=== PATIENT | female | born 1975 | race American Indian/Alaskan Native ===

== ENCOUNTER 2017-09-01 19:50 | Emergency (ER) | payer MEDICAID ==
[2017-09-01 20:35] VITALS: BP 195/80
[2017-09-01] MEDS ORDERED: TORADOL IM ONE (20:36)
[2017-09-01] MEDS ORDERED: ZOFRAN IM ONE (20:36)
[2017-09-01 21:00] LABS: HCG Qualitative,Urine Negative (Negative)
[2017-09-01 21:06] LABS: Bilirubin,Urine NEG (Negative); Blood,Urine LG (Negative); Color,Urine Amber (Yellow)
[2017-09-01 21:17] LABS: Basophils % (Auto) 0.3 % (0.0-1.8); Eosinophils # (Auto) 0.2 K/mm3 (0.0-0.4); Eosinophils % (Auto) 2.2 % (0.0-4.3); Hematocrit 38.6 % (30.3-42.9); Hemoglobin 12.1 gm/dl (10.1-14.3); Lymphocytes # (Auto) 1.6 K/mm3 (1.2-5.4); Lymphocytes % (Auto) 19.7 % (13.4-35.0); Mean Corpuscular HGB Conc 31 % (30-34); Mean Corpuscular Volume 75 fl (79-97); Monocytes # (Auto) 0.6 K/mm3 (0.0-0.8); Monocytes % (Auto) 7.8 % (0.0-7.3); Platelet Count 302 K/mm3 (140-440); Red Blood Count 5.15 M/mm3 (3.65-5.03); Red Cell Distribution Width 17.2 % (13.2-15.2)
[2017-09-01 21:18] LABS: Mean Corpuscular Hemoglobin 24 pg (28-32)
[2017-09-01 21:36] LABS: BUN/Creatinine Ratio 11; Blood Urea Nitrogen 10 mg/dL (7-17); Calcium 9.1 mg/dL (8.4-10.2); Hemolysis Index 11
== END 2017-09-01 22:00 | disposition left against medical advice (07) ==
LOC: ED 19:50
DX: M54.9 Dorsalgia, unspecified (principal); Z53.21 Procedure and treatment not carried out due to patient leaving prior to being seen by health care provider
CPT/HCPCS: 36415; 80048; 81001; 81025; 85025; J1885; J2405

== ENCOUNTER 2017-10-16 22:44 | Emergency (ER) | payer MEDICAID ==
[2017-10-16] MEDS ORDERED: PEPCID IV ONE ×2 (23:12)
[2017-10-16 23:45] LABS: Basophils % (Auto) 0.3 % (0.0-1.8); Eosinophils # (Auto) 0.2 K/mm3 (0.0-0.4); Eosinophils % (Auto) 2.4 % (0.0-4.3); Hemoglobin 11.8 gm/dl (10.1-14.3); Lymphocytes # (Auto) 2.8 K/mm3 (1.2-5.4); Lymphocytes % (Auto) 38.7 % (13.4-35.0); Mean Corpuscular HGB Conc 31 % (30-34); Mean Corpuscular Volume 75 fl (79-97); Monocytes # (Auto) 0.6 K/mm3 (0.0-0.8); Monocytes % (Auto) 7.9 % (0.0-7.3); Platelet Count 301 K/mm3 (140-440); Red Blood Count 5.07 M/mm3 (3.65-5.03); Red Cell Distribution Width 17.3 % (13.2-15.2)
[2017-10-16 23:48] LABS: Mean Corpuscular Hemoglobin 23 pg (28-32)
[2017-10-16] MEDS ORDERED: APRESOLINE IV ONE (23:54)
[2017-10-16 23:56] LABS: BUN/Creatinine Ratio 13; Blood Urea Nitrogen 10 mg/dL (7-17); Calcium 8.8 mg/dL (8.4-10.2); Hemolysis Index 9
[2017-10-16] MEDS ORDERED: NACL 0.9% 500 ML 500 ML IV ONE (23:56)
[2017-10-16] MEDS ORDERED: ATIVAN IV ONE (23:57)
--- NOTE | 2017-10-16 23:57 | Emergency Department Report ---
HPI - General Chief Complaint: Allergic Reaction Time Seen by Provider: 10/16/17 23:52 - HPI HPI: The patient is a 42-year-old female with a history of allergies to peanuts and shellfish, who presents for evaluation of dyspnea and throat pain. The patient reports sudden onset of tightness of the throat 30 minutes prior to arrival, severe, constant, and associated with mild dyspnea and burning sensation of the upper chest. The patient denies lip or tongue swelling, neck stiffness, dysphagia, stridor, drooling, difficulty tolerating secretions, dysphonia, hoarseness of voice, abdominal pain. ED Past Medical Hx - Past Medical History Previous Medical History?: Yes Hx Hypertension: Yes Hx Congestive Heart Failure: No Hx Diabetes: No Hx Psychiatric Treatment: Yes (PTSD, Depression) Hx Asthma: No Additional medical history: fibriod. chronic brochitis. anemia - Surgical History Past Surgical History?: Yes Hx Cholecystectomy: Yes Additional Surgical History: Fibroids removed 2012 - Social History Smoking Status: Never Smoker Substance Use Type: None - Medications Home Medications: Home Medications Medication Instructions Recorded Confirmed Last Taken Type Hydrochlorothiazide [Hctz] 12.5 mg PO QDAY #30 capsule 10/21/15 Unknown Rx Prednisone [predniSONE 10 mg 10 mg PO .TAPER #1 tab.ds.pk 10/21/15 Unknown Rx (6-Day Pack, 21 Tabs)] amLODIPine [Norvasc] 10 mg PO DAILY #30 tab 10/21/15 Unknown Rx ED Review of Systems ROS: Stated complaint: ALLERGIC REACTION Other details as noted in HPI Constitutional: denies: fever ENT: reports: throat or neck pain Respiratory: denies: cough, shortness of breath Cardiovascular: denies: chest pain Endocrine: denies unexplained weight loss or gain Gastrointestinal: denies: abdominal pain, nausea Genitourinary: denies: dysuria Musculoskeletal: denies: leg swelling Skin: denies: rash Neurological: denies: headache Hematological/Lymphatic: denies: easy bleeding or easy bruising Psych: denies sadness or hopelessness Physical Exam - Physical Exam Vital Signs: Vital Signs 10/16/17 10/16/17 10/16/17 23:02 23:08 23:21 Temperature 100.1 F H Pulse Rate 110 H 108 H Respiratory 24 18 18 Rate Blood Pressure 189/112 Blood Pressure 189/112 172/99 [Right] O2 Sat by Pulse 100 98 98 Oximetry Physical Exam: General: well-nourished, well-developed, no acute distress Head: Normocephalic, atraumatic Eyes: normal sclera ENT: Mucous membranes are pale and dry, no lip or tongue swelling, no uvula swelling, no uvula or soft palate deviation, no pooling of secretions in the posterior oral pharynx, no stridor Neck: No neck stiffness, no cervical adenopathy, Respiratory: Breath sounds equal bilaterally, no wheezing, rales, or rhonchi Cardio: S1 and S2 present, no murmurs, rubs, gallops, capillary refill is delayed Abdomen: Normoactive bowel sounds, soft abdomen, no rigidity, no guarding or rebound tenderness Chest WALL/Back: No tenderness to palpation of the chest wall, no CVA tenderness with percussion Musc: No pitting edema Skin: No rash Neuro: no facial drooping, normal speech Psych: Normal affect ED Course Vital Signs 10/16/17 10/16/17 10/16/17 23:02 23:08 23:21 Temperature 100.1 F H Pulse Rate 110 H 108 H Respiratory 24 18 18 Rate Blood Pressure 189/112 Blood Pressure 189/112 172/99 [Right] O2 Sat by Pulse 100 98 98 Oximetry ED Medical Decision Making - Lab Data Result diagrams: 10/16/17 23:31 10/16/17 23:31 - Medical Decision Making The patient was seen and examined by myself. The patient is placed on a busser and continuous pulse ox. On initial evaluation, the patient was found to be in no distress. Evaluation orders were placed. The patient is given IM epi and IV Pepcid. The patient received IV Solu-Medrol and Benadryl via EMS prior to arrival. X-ray of the chest is unremarkable. EKG is unremarkable. Lab results are unrevealing. The patient was monitored in the emergency department for greater than 4 hours without any signs of impending airway compromise. The patient was reevaluated and reported that their symptoms were markedly improved. The patient is stable for discharge with outpatient follow-up. The patient is given follow-up and return instructions. The patient expressed understanding and agreed with the plan. The patient is discharged in stable condition. Critical care attestation.: If time is entered above; I have spent that time in minutes in the direct care of this critically ill patient, excluding procedure time. ED Disposition Clinical Impression: Dehydration Anaphylactic reaction Qualifiers: Encounter type: initial encounter Qualified Code(s): T78.2XXA - Anaphylactic shock, unspecified, initial encounter Disposition: DC-01 TO HOME OR SELFCARE Is pt being admited?: No Does the pt Need Aspirin: No Condition: Stable Referrals: PRIMARY CARE,MD [Primary Care Provider] - 3-5 Days Forms: Work/School Release Form(ED) Time of Disposition: 03:39
--- NOTE | 2017-10-17 01:09 | XRay Report ---
FINAL REPORT EXAM: XR CHEST 1V AP HISTORY: chest pain COMPARISON: None available. FINDINGS: Frontal view(s) of the chest obtained. Heart borderline enlarged. Shallow inspiration with crowding of the bronchovascular markings. No large consolidation or effusion. No pneumothorax. IMPRESSION: Heart borderline enlarged. Shallow inspiration with crowding of the bronchovascular markings. No large consolidation or effusion.
[2017-10-17] MEDS ORDERED: APRESOLINE IV ONE ×2 (01:37→03:33)
[2017-10-17] MEDS ORDERED: LASIX IV ONE (03:33)
[2017-10-17] MEDS ORDERED: ATIVAN IV ONE (03:33)
[2017-10-17] MEDS ORDERED: NITROSTAT SL ONE (03:33)
[2017-10-17] MEDS ORDERED: PERCOCET 5/325 ONE (07:36)
[2017-10-17] MEDS ORDERED: PERCOCET 5/325 PO ONE (07:40)
[2017-10-17 07:42] VITALS: BP 148/93
== END 2017-10-17 08:38 | disposition home or self-care (01) ==
LOC: ED 22:44
DX: T78.2XXA Anaphylactic shock, unspecified, initial encounter (principal); E86.0 Dehydration; I10 Essential (primary) hypertension; F32.9 Major depressive disorder, single episode, unspecified; Z90.49 Acquired absence of other specified parts of digestive tract; Z91.013 Allergy to seafood; Z91.010 Allergy to peanuts
CPT/HCPCS: 36415; 71045; 80048; 85025; 93005; 93010; 96361; 96374; 96375; 96376; 99285; J0360; J1940; J2060; J2930; J7040

== ENCOUNTER 2017-11-21 14:42 | Emergency (ER) | payer MEDICAID ==
[2017-11-21] MEDS ORDERED: NACL 0.9% 1000 ML 1,000 ML IV ONE (15:15)
--- NOTE | 2017-11-21 15:15 | Emergency Department Report ---
ED Allergic Reaction HPI - General Chief complaint: Allergic Reaction Stated complaint: ALLERGIC REACTION Time Seen by Provider: 11/21/17 15:13 Source: patient, EMS Mode of arrival: Stretcher Limitations: No Limitations - History of Present Illness MD Complaint: allergic reaction -: Sudden Exposure: food Symptoms: itching, difficulty breathing Severity: moderate Treatment Prior to Arrival: benadryl, epinephrine Previous Allergy History: prior ED visit(s), anaphylaxis - Related Data Previous Rx's Medication Instructions Recorded Last Taken Type Hydrochlorothiazide [Hctz] 12.5 mg PO QDAY #30 capsule 10/21/15 Unknown Rx Prednisone [predniSONE 10 mg 10 mg PO .TAPER #1 tab.ds.pk 10/21/15 Unknown Rx (6-Day Pack, 21 Tabs)] amLODIPine [Norvasc] 10 mg PO DAILY #30 tab 10/21/15 Unknown Rx Hydrochlorothiazide [HCTZ] 25 mg PO QDAY #30 tablet 10/17/17 Unknown Rx Prednisone [predniSONE 10 mg 10 mg PO .TAPER #1 tab.ds.pk 10/17/17 Unknown Rx (6-Day Pack, 21 Tabs)] amLODIPine [Norvasc] 10 mg PO DAILY #31 tab 10/17/17 Unknown Rx diphenhydrAMINE [Benadryl CAP] 50 mg PO Q8HR PRN #30 capsule 10/17/17 Unknown Rx EPINEPHrine [Epipen 2-Albert] 0.3 mg SUB-Q ONCE PRN #1 auto.injct 11/21/17 Unknown Rx diphenhydrAMINE [Benadryl CAP] 50 mg PO Q8HR PRN #20 capsule 11/21/17 Unknown Rx predniSONE [Deltasone] 60 mg PO QDAY #12 tab 11/21/17 Unknown Rx Allergies Allergy/AdvReac Type Severity Reaction Status Date / Time almond Allergy Anaphylaxis Verified 11/21/17 14:59 shellfish derived AdvReac Anaphylaxis Verified 11/21/17 14:59 ED Review of Systems ROS: Stated complaint: ALLERGIC REACTION Other details as noted in HPI Comment: All other systems reviewed and negative Constitutional: denies: chills, fever Eyes: denies: eye pain ENT: denies: ear pain Respiratory: denies: cough, orthopnea, shortness of breath Cardiovascular: denies: chest pain, palpitations, dyspnea on exertion, syncope Endocrine: no symptoms reported Gastrointestinal: denies: abdominal pain, nausea, vomiting, constipation Genitourinary: denies: urgency, dysuria, frequency Musculoskeletal: denies: back pain, joint swelling Skin: denies: rash, lesions, change in color Neurological: denies: headache, weakness Psychiatric: denies: anxiety, depression Hematological/Lymphatic: denies: easy bleeding, easy bruising ED Past Medical Hx - Past Medical History Previous Medical History?: Yes Hx Hypertension: Yes Hx Congestive Heart Failure: No Hx Diabetes: No Hx Psychiatric Treatment: Yes (PTSD, Depression, panic disorder) Hx Asthma: No Additional medical history: fibriod. chronic brochitis. anemia - Surgical History Hx Cholecystectomy: Yes Additional Surgical History: Fibroids removed 2012 - Social History Smoking Status: Never Smoker Substance Use Type: None - Medications Home Medications: Home Medications Medication Instructions Recorded Confirmed Last Taken Type Hydrochlorothiazide [Hctz] 12.5 mg PO QDAY #30 capsule 10/21/15 Unknown Rx Prednisone [predniSONE 10 mg 10 mg PO .TAPER #1 tab.ds.pk 10/21/15 Unknown Rx (6-Day Pack, 21 Tabs)] amLODIPine [Norvasc] 10 mg PO DAILY #30 tab 10/21/15 Unknown Rx Hydrochlorothiazide [HCTZ] 25 mg PO QDAY #30 tablet 10/17/17 Unknown Rx Prednisone [predniSONE 10 mg 10 mg PO .TAPER #1 tab.ds.pk 10/17/17 Unknown Rx (6-Day Pack, 21 Tabs)] amLODIPine [Norvasc] 10 mg PO DAILY #31 tab 10/17/17 Unknown Rx diphenhydrAMINE [Benadryl CAP] 50 mg PO Q8HR PRN #30 capsule 10/17/17 Unknown Rx EPINEPHrine [Epipen 2-Albert] 0.3 mg SUB-Q ONCE PRN #1 auto.injct 11/21/17 Unknown Rx diphenhydrAMINE [Benadryl CAP] 50 mg PO Q8HR PRN #20 capsule 11/21/17 Unknown Rx predniSONE [Deltasone] 60 mg PO QDAY #12 tab 11/21/17 Unknown Rx ED Physical Exam - General Limitations: No Limitations General appearance: alert, in no apparent distress, obese - Head Head exam: Present: atraumatic, normocephalic, normal inspection - Eye Eye exam: Present: normal appearance, PERRL, EOMI Pupils: Present: normal accommodation - ENT ENT exam: Present: normal exam, normal orophraynx, mucous membranes moist - Neck Neck exam: Present: normal inspection, full ROM. Absent: tenderness - Respiratory Respiratory exam: Present: normal lung sounds bilaterally. Absent: respiratory distress, wheezes, rales, rhonchi - Cardiovascular Cardiovascular Exam: Present: regular rate, normal rhythm, normal heart sounds - GI/Abdominal GI/Abdominal exam: Present: soft, normal bowel sounds. Absent: distended, tenderness, guarding, rebound - Extremities Exam Extremities exam: Present: normal inspection, full ROM, normal capillary refill. Absent: tenderness - Back Exam Back exam: Present: normal inspection, full ROM. Absent: tenderness - Neurological Exam Neurological exam: Present: alert, oriented X3, CN II-XII intact - Psychiatric Psychiatric exam: Present: normal affect, normal mood - Skin Skin exam: Present: warm, dry, intact, normal color, rash ED Course Vital Signs 11/21/17 11/21/17 11/21/17 14:42 16:00 17:00 Temperature 98.5 F Pulse Rate 105 H 109 H 95 H Respiratory 17 15 18 Rate Blood Pressure 167/68 Blood Pressure 199/100 150/90 [Left] O2 Sat by Pulse 98 98 96 Oximetry 11/21/17 11/21/17 17:40 18:16 Temperature 98.2 F Pulse Rate 91 H Respiratory 18 Rate Blood Pressure Blood Pressure 149/86 [Left] O2 Sat by Pulse 96 96 Oximetry - Reevaluation(s) Reevaluation #1: 11/21/17 19:00 Patient states she is much better and would like to be discharged home. ED Medical Decision Making - Lab Data Result diagrams: 11/21/17 15:42 11/21/17 15:42 - Radiology Data Radiology results: report reviewed - Medical Decision Making Allergic Reaction. Critical care attestation.: If time is entered above; I have spent that time in minutes in the direct care of this critically ill patient, excluding procedure time. ED Disposition Clinical Impression: Allergic reaction Qualifiers: Encounter type: initial encounter Qualified Code(s): T78.40XA - Allergy, unspecified, initial encounter Disposition: - TO HOME OR SELFCARE Is pt being admited?: No Does the pt Need Aspirin: No Condition: Stable Instructions: Food Allergy (ED), Allergies (ED) Additional Instructions: Please follow up with your regular doctor tomorrow morning. Return to the ED if your condition worsens. Prescriptions: diphenhydrAMINE [Benadryl CAP] 50 mg PO Q8HR PRN #20 capsule PRN Reason: Allergic Reaction EPINEPHrine [Epipen 2-Albert] 0.3 mg SUB-Q ONCE PRN #1 auto.injct PRN Reason: Allergic Reaction predniSONE [Deltasone] 60 mg PO QDAY #12 tab Referrals: PRIMARY CARE, [Primary Care Provider] - 3-5 Days Time of Disposition: 19:05
[2017-11-21 16:21] LABS: Basophils % (Auto) 0.4 % (0.0-1.8); Eosinophils # (Auto) 0.3 K/mm3 (0.0-0.4); Hematocrit 39.1 % (30.3-42.9); Hemoglobin 12.1 gm/dl (10.1-14.3); Lymphocytes # (Auto) 2.7 K/mm3 (1.2-5.4); Lymphocytes % (Auto) 38.8 % (13.4-35.0); Mean Corpuscular HGB Conc 31 % (30-34); Mean Corpuscular Volume 75 fl (79-97); Monocytes # (Auto) 0.5 K/mm3 (0.0-0.8); Monocytes % (Auto) 7.2 % (0.0-7.3); Platelet Count 315 K/mm3 (140-440); Red Cell Distribution Width 17.4 % (13.2-15.2)
[2017-11-21 16:22] LABS: Mean Corpuscular Hemoglobin 23 pg (28-32)
[2017-11-21 16:30] LABS: Alanine Aminotransferase 22 units/L (7-56); Albumin 3.9 g/dL (3.9-5); BUN/Creatinine Ratio 11; Blood Urea Nitrogen 9 mg/dL (7-17); Calcium 9.2 mg/dL (8.4-10.2); Hemolysis Index 1
[2017-11-21 18:17] VITALS: BP 149/86
[2017-11-21] MEDS: TORADOL IV ONE ×2 (18:58→19:13)
[2017-11-21] MEDS ORDERED: ZOFRAN IV ONE (19:14)
== END 2017-11-21 19:14 | disposition home or self-care (01) ==
LOC: ED 14:42
DX: T78.40XA Allergy, unspecified, initial encounter (principal); I10 Essential (primary) hypertension; F17.200 Nicotine dependence, unspecified, uncomplicated; Y92.9 Unspecified place or not applicable
CPT/HCPCS: 36415; 80053; 85025; 96374; 96375; 99284; J1885; J2930; J7030

== ENCOUNTER 2017-11-24 02:09 | Emergency (ER) | payer MEDICAID ==
[2017-11-24] MEDS ORDERED: ATROVENT IH ONE ×2 (02:33→02:37)
[2017-11-24] MEDS ORDERED: XOPENEX IH ONE ×2 (02:33→02:37)
[2017-11-24 02:59] LABS: Basophils % (Auto) 0.2 % (0.0-1.8); Eosinophils % (Auto) 0.1 % (0.0-4.3); Hematocrit 41.3 % (30.3-42.9); Hemoglobin 12.9 gm/dl (10.1-14.3); Lymphocytes # (Auto) 2.4 K/mm3 (1.2-5.4); Lymphocytes % (Auto) 17.9 % (13.4-35.0); Mean Corpuscular HGB Conc 31 % (30-34); Mean Corpuscular Volume 75 fl (79-97); Monocytes # (Auto) 0.9 K/mm3 (0.0-0.8); Monocytes % (Auto) 6.4 % (0.0-7.3); Platelet Count 366 K/mm3 (140-440); Red Blood Count 5.48 M/mm3 (3.65-5.03); Red Cell Distribution Width 17.2 % (13.2-15.2)
[2017-11-24] MEDS ORDERED: CARDENE 50 MG in NACL 0.9% 250ML 230 ML IV SCH (03:00)
[2017-11-24 03:09] LABS: INR 0.91 (0.87-1.13)
[2017-11-24 03:11] LABS: BUN/Creatinine Ratio 20; Blood Urea Nitrogen 16 mg/dL (7-17); Calcium 9.3 mg/dL (8.4-10.2); Hemolysis Index 7
[2017-11-24 03:15] LABS: Mean Corpuscular Hemoglobin 24 pg (28-32)
[2017-11-24] MEDS ORDERED: BENADRYL ONE (03:23)
[2017-11-24] MEDS ORDERED: BENADRYL IV ONE (03:24)
--- NOTE | 2017-11-24 03:25 | XRay Report ---
FINAL REPORT PROCEDURE: XR CHEST 1V AP TECHNIQUE: Chest radiograph anteroposterior view. CPT 97551 HISTORY: sob COMPARISON: 10/16/2017 FINDINGS: Heart: Normal. Mediastinum/Vessels: Normal. Lungs/Pleural space: Normal. Bony thorax: No acute osseous abnormality. Life support devices: None. IMPRESSION: No acute cardiopulmonary abnormality.
[2017-11-24 04:04] LABS: Creatine Kinase MB < 1.0 ng/mL (0.0-4.0)
--- NOTE | 2017-11-24 04:06 | Emergency Department Report ---
ED Shortness of Breath HPI - General Chief Complaint: Dyspnea/Respdistress Stated Complaint: COY Time Seen by Provider: 11/24/17 02:24 Source: patient, EMS Mode of arrival: Ambulatory Limitations: No Limitations - History of Present Illness Initial Comments: 42 year old female with a past medical history multiple allergic reactions, obesity, hypertension, PTSD, panic disorder, chronic bronchitis, fibroids, and anemia presents to the hospital complaints of worsening shortness of breath this morning. Patient was here on November 21 for allergic reaction. She received epinephrine, steroids, and Benadryl. She has been continuing the Benadryl and prednisone at home but states she has continued to feel short of breath. She even tried her daughters nebulized treatment without improvement. Tonight symptoms acutely worsening feeling like there is a pressure on her chest and feeling like she is full of fluid. Initially patient stated that this felt different from both her previous allergic reaction and her anxiety. Patient is diaphoretic, tachypnea, anxious, and unable to sit or lie on the bed because she feels better standing up. In Route with EMS her BP was 193/1:30 with a heart rate of 120. Patient remains hypertensive and tachypneic upon arrival. - Related Data Previous Rx's Medication Instructions Recorded Last Taken Type Hydrochlorothiazide [Hctz] 12.5 mg PO QDAY #30 capsule 10/21/15 Unknown Rx Prednisone [predniSONE 10 mg 10 mg PO .TAPER #1 tab.ds.pk 10/21/15 Unknown Rx (6-Day Pack, 21 Tabs)] amLODIPine [Norvasc] 10 mg PO DAILY #30 tab 10/21/15 Unknown Rx Hydrochlorothiazide [HCTZ] 25 mg PO QDAY #30 tablet 10/17/17 Unknown Rx Prednisone [predniSONE 10 mg 10 mg PO .TAPER #1 tab.ds.pk 10/17/17 Unknown Rx (6-Day Pack, 21 Tabs)] amLODIPine [Norvasc] 10 mg PO DAILY #31 tab 10/17/17 Unknown Rx diphenhydrAMINE [Benadryl CAP] 50 mg PO Q8HR PRN #30 capsule 10/17/17 Unknown Rx EPINEPHrine [Epipen 2-Albert] 0.3 mg SUB-Q ONCE PRN #1 auto.injct 11/21/17 Unknown Rx diphenhydrAMINE [Benadryl CAP] 50 mg PO Q8HR PRN #20 capsule 11/21/17 Unknown Rx predniSONE [Deltasone] 60 mg PO QDAY #12 tab 11/21/17 Unknown Rx Allergies Allergy/AdvReac Type Severity Reaction Status Date / Time almond Allergy Anaphylaxis Verified 11/21/17 14:59 shellfish derived AdvReac Anaphylaxis Verified 11/21/17 14:59 ED Review of Systems ROS: Stated complaint: COY Other details as noted in HPI Comment: All other systems reviewed and negative ED Past Medical Hx - Past Medical History Previous Medical History?: Yes Hx Hypertension: Yes Hx Congestive Heart Failure: No Hx Diabetes: No Hx Psychiatric Treatment: Yes (PTSD, Depression, panic disorder) Hx Asthma: No Additional medical history: fibriod. chronic brochitis. anemia - Surgical History Past Surgical History?: Yes Hx Cholecystectomy: Yes Additional Surgical History: Fibroids removed 2012 - Social History Smoking Status: Never Smoker Substance Use Type: Prescribed - Medications Home Medications: Home Medications Medication Instructions Recorded Confirmed Last Taken Type Hydrochlorothiazide [Hctz] 12.5 mg PO QDAY #30 capsule 10/21/15 Unknown Rx Prednisone [predniSONE 10 mg 10 mg PO .TAPER #1 tab.ds.pk 10/21/15 Unknown Rx (6-Day Pack, 21 Tabs)] amLODIPine [Norvasc] 10 mg PO DAILY #30 tab 10/21/15 Unknown Rx Hydrochlorothiazide [HCTZ] 25 mg PO QDAY #30 tablet 10/17/17 Unknown Rx Prednisone [predniSONE 10 mg 10 mg PO .TAPER #1 tab.ds.pk 10/17/17 Unknown Rx (6-Day Pack, 21 Tabs)] amLODIPine [Norvasc] 10 mg PO DAILY #31 tab 10/17/17 Unknown Rx diphenhydrAMINE [Benadryl CAP] 50 mg PO Q8HR PRN #30 capsule 10/17/17 Unknown Rx EPINEPHrine [Epipen 2-Albert] 0.3 mg SUB-Q ONCE PRN #1 auto.injct 11/21/17 Unknown Rx diphenhydrAMINE [Benadryl CAP] 50 mg PO Q8HR PRN #20 capsule 11/21/17 Unknown Rx predniSONE [Deltasone] 60 mg PO QDAY #12 tab 11/21/17 Unknown Rx ED Physical Exam - General Limitations: No Limitations - Other Other exam information: General: Moderate to severe distress Head exam: Atraumatic, normocephalic Eyes exam: Normal appearance ENT: Moist mucous membrane, no stridor, no posterior pharynx swelling, no tongue Neck exam: Normal inspection, full range of motion, no meningismus nontender Respiratory exam: Tachypnea but clear Cardiovascular: Tachycardic regular rhythm Abdomen: Soft, nondistended, and nontender, with normal bowel sounds, no rebound, or guarding Extremity: Full range of motion normal inspection no deformity Back: Normal Inspection, full range of motion, no tenderness Neurologic: Alert, oriented x3, cranial nerves intact, no motor or sensory deficit Psychiatric: Anxious Skin: Diaphoretic ED Course Vital Signs 11/24/17 11/24/17 11/24/17 02:13 02:20 02:28 Temperature 98.6 F Pulse Rate 146 H 120 H Pulse Rate [ Anterior Bilateral Throughout] Respiratory 26 H 19 Rate Respiratory Rate [Anterior Bilateral Throughout] Blood Pressure 212/134 Blood Pressure 212/134 [Right] O2 Sat by Pulse 98 98 Oximetry 11/24/17 11/24/17 11/24/17 02:46 03:31 03:36 Temperature Pulse Rate 122 H 100 H Pulse Rate [ 107 H Anterior Bilateral Throughout] Respiratory 28 H 12 Rate Respiratory 17 Rate [Anterior Bilateral Throughout] Blood Pressure Blood Pressure 194/114 178/102 [Right] O2 Sat by Pulse 97 98 Oximetry 11/24/17 03:48 Temperature Pulse Rate 98 H Pulse Rate [ Anterior Bilateral Throughout] Respiratory Rate Respiratory Rate [Anterior Bilateral Throughout] Blood Pressure Blood Pressure 169/103 [Right] O2 Sat by Pulse Oximetry - Reevaluation(s) Reevaluation #1: 11/24/17 04:08 Patient given Xopenex and Atrovent nebulized treatment and Solu-Medrol initially seemed to be doing better. Inpatient grabbed the nurse stating that she feels like the right side of her throat is closing up the requesting Benadryl. After Benadryl 50 mg IV symptoms improved and patient was calmer. Cardene drip was also ordered for uncontrolled elevated blood pressure but this was also improving prior to re-exacerbation of shortness of breath and throat tightness symptoms. ED Medical Decision Making - Lab Data Result diagrams: 11/24/17 02:46 11/24/17 02:46 Lab Results 11/24/17 11/24/17 11/24/17 Range/Units 01:00 02:46 02:46 WBC 13.6 H (4.5-11.0) K/mm3 RBC 5.48 H (3.65-5.03) M/mm3 Hgb 12.9 (10.1-14.3) gm/dl Hct 41.3 (30.3-42.9) % MCV 75 L (79-97) fl MCH 24 L (28-32) pg MCHC 31 (30-34) % RDW 17.2 H (13.2-15.2) % Plt Count 366 (140-440) K/mm3 Lymph % (Auto) 17.9 (13.4-35.0) % Wake % (Auto) 6.4 (0.0-7.3) % Eos % (Auto) 0.1 (0.0-4.3) % Baso % (Auto) 0.2 (0.0-1.8) % Lymph # 2.4 (1.2-5.4) K/mm3 Wake # 0.9 H (0.0-0.8) K/mm3 Eos # 0.0 (0.0-0.4) K/mm3 Baso # 0.0 (0.0-0.1) K/mm3 Seg Neutrophils % 75.4 H (40.0-70.0) % Seg Neutrophils # 10.2 H (1.8-7.7) K/mm3 PT (12.2-14.9) Sec. INR (0.87-1.13) D-Dimer 227.3 (0-234) ng/mlDDU Sodium 136 L (137-145) mmol/L Potassium 4.9 D (3.6-5.0) mmol/L Chloride 98.7 (98-107) mmol/L Carbon Dioxide 23 (22-30) mmol/L Anion Gap 19 mmol/L BUN 16 (7-17) mg/dL Creatinine 0.8 (0.7-1.2) mg/dL Estimated GFR > 60 ml/min BUN/Creatinine Ratio 20 % Glucose 194 H (65-100) mg/dL Calcium 9.3 (8.4-10.2) mg/dL Total Creatine Kinase (30-135) units/L CK-MB (CK-2) (0.0-4.0) ng/mL CK-MB (CK-2) Rel Index (0-4) Troponin T (0.00-0.029) ng/mL NT-Pro-B Natriuret Pep (0-450) pg/mL HCG, Qual (Negative) 11/24/17 11/24/17 11/24/17 Range/Units 02:46 02:46 02:46 WBC (4.5-11.0) K/mm3 RBC (3.65-5.03) M/mm3 Hgb (10.1-14.3) gm/dl Hct (30.3-42.9) % MCV (79-97) fl MCH (28-32) pg MCHC (30-34) % RDW (13.2-15.2) % Plt Count (140-440) K/mm3 Lymph % (Auto) (13.4-35.0) % Wake % (Auto) (0.0-7.3) % Eos % (Auto) (0.0-4.3) % Baso % (Auto) (0.0-1.8) % Lymph # (1.2-5.4) K/mm3 Wake # (0.0-0.8) K/mm3 Eos # (0.0-0.4) K/mm3 Baso # (0.0-0.1) K/mm3 Seg Neutrophils % (40.0-70.0) % Seg Neutrophils # (1.8-7.7) K/mm3 PT 12.7 (12.2-14.9) Sec. INR 0.91 (0.87-1.13) D-Dimer (0-234) ng/mlDDU Sodium (137-145) mmol/L Potassium (3.6-5.0) mmol/L Chloride (98-107) mmol/L Carbon Dioxide (22-30) mmol/L Anion Gap mmol/L BUN (7-17) mg/dL Creatinine (0.7-1.2) mg/dL Estimated GFR ml/min BUN/Creatinine Ratio % Glucose (65-100) mg/dL Calcium (8.4-10.2) mg/dL Total Creatine Kinase 26 L (30-135) units/L CK-MB (CK-2) < 1.0 (0.0-4.0) ng/mL CK-MB (CK-2) Rel Index 3.8 (0-4) Troponin T < 0.010 (0.00-0.029) ng/mL NT-Pro-B Natriuret Pep 277.8 (0-450) pg/mL HCG, Qual Negative (Negative) - EKG Data -: EKG Interpreted by Me (jennifer) EKG shows normal: sinus rhythm, axis (qrs 2), QRS complexes (qrsd 77), ST-T waves (no stemi/t inv) Rate: tachycardia (133) - Radiology Data Radiology results: report reviewed FINAL REPORT PROCEDURE: XR CHEST 1V AP TECHNIQUE: Chest radiograph anteroposterior view. CPT 06866 HISTORY: sob COMPARISON: 10/16/2017 FINDINGS: Heart: Normal. Mediastinum/Vessels: Normal. Lungs/Pleural space: Normal. Bony thorax: No acute osseous abnormality. Life support devices: None. IMPRESSION: No acute cardiopulmonary abnormality. - Medical Decision Making EKG reveals sinus tach. I suspect that patient is having an allergic reaction or a panic attack or combination of both. Symptoms improved with ED treatment. Initial troponin, chest x-ray, and d-dimer are all negative. Hospitalist informed for admission - Differential Diagnosis COPD, allergic reaction, panic attack, MA, unstable angina, PE, arrhythmia Critical Care Time: No Critical care attestation.: If time is entered above; I have spent that time in minutes in the direct care of this critically ill patient, excluding procedure time. ED Disposition Clinical Impression: Allergic reaction, Elevated blood pressure, Accelerated hypertension, Morbid obesity, Anxiety, Chest pain Disposition: OP ADMIT IP TO THIS HOSP Is pt being admited?: Yes Condition: Stable Time of Disposition: 04:08 (DR cedeno/hosp)
[2017-11-24 06:34] VITALS: BP 159/99
== END 2017-11-24 07:34 | disposition admitted as inpatient to this hospital (09) ==
LOC: ED 02:09
DX: E66.01 Morbid (severe) obesity due to excess calories (principal); F41.9 Anxiety disorder, unspecified; R07.9 Chest pain, unspecified; T78.40XA Allergy, unspecified, initial encounter; I10 Essential (primary) hypertension; D64.9 Anemia, unspecified; Z90.49 Acquired absence of other specified parts of digestive tract; Z91.040 Latex allergy status; Z91.018 Allergy to other foods
CPT/HCPCS: 36415; 71045; 80048; 82550; 82553; 83880; 84484; 84703; 85025; 85379; 85610; 93005; 93010; 94640; 96374; 96375; 99285; J1200; J2930; J7050

== ENCOUNTER 2018-01-09 09:13 | Emergency (ER) | payer MEDICAID ==
[2018-01-09] MEDS ORDERED: ASPIRIN PO ONE (09:47)
[2018-01-09] MEDS ORDERED: NITRO-BID 2% TP ONE (10:00)
[2018-01-09 10:24] LABS: Basophils % (Auto) 0.3 % (0.0-1.8); Eosinophils # (Auto) 0.1 K/mm3 (0.0-0.4); Eosinophils % (Auto) 1.3 % (0.0-4.3); Hematocrit 39.4 % (30.3-42.9); Hemoglobin 12.4 gm/dl (10.1-14.3); Lymphocytes # (Auto) 2.5 K/mm3 (1.2-5.4); Lymphocytes % (Auto) 28.8 % (13.4-35.0); Mean Corpuscular HGB Conc 31 % (30-34); Mean Corpuscular Volume 75 fl (79-97); Monocytes # (Auto) 0.7 K/mm3 (0.0-0.8); Monocytes % (Auto) 8.6 % (0.0-7.3); Platelet Count 327 K/mm3 (140-440); Red Blood Count 5.22 M/mm3 (3.65-5.03); Red Cell Distribution Width 16.9 % (13.2-15.2)
[2018-01-09 10:26] LABS: Mean Corpuscular Hemoglobin 24 pg (28-32)
[2018-01-09 10:34] LABS: INR 0.95 (0.87-1.13)
[2018-01-09 10:40] LABS: Bilirubin,Urine NEG (Negative); Blood,Urine SM (Negative); Color,Urine Yellow (Yellow); Urobilinogen,Urine < 2.0 mg/dL (<2.0)
[2018-01-09 10:45] LABS: Alanine Aminotransferase 18 units/L (7-56); Albumin 4.1 g/dL (3.9-5); BUN/Creatinine Ratio 11; Blood Urea Nitrogen 10 mg/dL (7-17); Calcium 9.5 mg/dL (8.4-10.2); Hemolysis Index 3
--- NOTE | 2018-01-09 10:45 | XRay Report ---
ROUTINE CHEST, TWO VIEWS: HISTORY: chest pain. The trachea, heart, mediastinal contour, lung thao and bony thorax are unremarkable. No change since 11/24/17. IMPRESSION: Unremarkable chest x-ray.
--- NOTE | 2018-01-09 11:51 | Emergency Department Report ---
Chief Complaint: Chest Pain Stated Complaint: CHEST PAIN Time Seen by Provider: 01/09/18 11:42 - HPI History of Present Illness: 42 year-old female presents to the emergency department with complaint of left-sided chest pain from underneath her breasts that wraps around into the left side of her back that has been going on since his morning when awoke her from sleep. She also feels it in the abdomen and says it is a pulsating sensation. It is associated with some mild shortness of breath. Independently patient says that she has some left calf pain for the past few days. Patient thinks that some of it may be due to stress as she is coming up on the two-year anniversary of her son dying. She took some Xanax without any relief. She denies any tobacco abuse or illicit drug use. She has never had a stress test. - ROS Review of Systems: Positive for chest pain, shortness of breath, anxiety Negative for fever, nausea, vomiting, diaphoresis - Exam Vital Signs: Vital Signs 01/09/18 09:30 Temperature 99.7 F H Pulse Rate 97 H Respiratory 22 Rate Blood Pressure 197/121 O2 Sat by Pulse 97 Oximetry Physical Exam: Morbidly obese habitus. Heart and lung sounds are normal to auscultation. Patient is awake and alert in no acute distress. She does appear to have intermittent sharp pains in which she grimaces. MSE screening note: Focused history and physical exam performed. Due to findings the following was ordered: \So far the patient's labs have been unremarkable including a normal CBC, CMP and a negative troponin. EKG does not show any signs of ST elevation AR. Patient does have extremely elevated blood pressure, morbid obesity, continued left-sided chest pain and has never had a stress test. Patient will be moved to the main emergency Department side to be seen. ED Medical Decision Making - Lab Data Result diagrams: 01/09/18 10:13 01/09/18 10:13 ED Disposition for MSE Condition: Stable Referrals: PRIMARY CARE [Primary Care Provider] - 3-5 Days
[2018-01-09] MEDS ORDERED: MOTRIN PO ONE (13:30)
[2018-01-09] MEDS ORDERED: MOTRIN ONE (13:41)
--- NOTE | 2018-01-09 18:55 | Emergency Department Report ---
<NIC CRENSHAW - Last Filed: 01/10/18 01:49> ED General Adult HPI - General Chief complaint: Chest Pain Stated complaint: CHEST PAIN Time Seen by Provider: 01/09/18 11:42 Source: patient, RN notes reviewed, old records reviewed Mode of arrival: Ambulatory Limitations: No Limitations - History of Present Illness Initial comments: This is a 42-year-old female who is not known to this provider previously. Her primary care doctor is Dr. Obdulio Frank. Her past medical history includes hypertension, and anxiety. Patient presents to the ER with multiple complaints. Her first complaints is left-sided chest wall pain and breast pain that radiates around to the back. It is intermittent does not have exacerbating or relieving factors. To me she denies diaphoresis. She complains of intermittent shortness of breath. She reports that she vomited 1. She also complains of nontraumatic left lower extremity pain. It does not radiate anywhere. It is in the calf. It increases with palpation and decreases with rest. She denies oral contraceptive use, recent travel, recent surgery, recent immobilization. She also indicates that she is not currently today. She also complains of pulsating abdominal pain, which is midline, does not radiate anywhere, and increases with palpation and decreases with rest. She denies cocaine use, denies recent aspirin use with the exception of today. -: Gradual, days(s) Location: chest, abdomen, left, lower extremity Quality: aching Consistency: intermittent, other Improves with: other Worsens with: other Associated Symptoms: chest pain, headaches, malaise, nausea/vomiting, shortness of breath, weakness, other. denies: confusion, cough, diaphoresis, fever/chills , loss of appetite, rash, seizure, syncope - Related Data Previous Rx's Medication Instructions Recorded Last Taken Type Hydrochlorothiazide [Hctz] 12.5 mg PO QDAY #30 capsule 10/21/15 Unknown Rx Prednisone [predniSONE 10 mg 10 mg PO .TAPER #1 tab.ds.pk 10/21/15 Unknown Rx (6-Day Pack, 21 Tabs)] amLODIPine [Norvasc] 10 mg PO DAILY #30 tab 10/21/15 Unknown Rx Hydrochlorothiazide [HCTZ] 25 mg PO QDAY #30 tablet 10/17/17 Unknown Rx Prednisone [predniSONE 10 mg 10 mg PO .TAPER #1 tab.ds.pk 10/17/17 Unknown Rx (6-Day Pack, 21 Tabs)] amLODIPine [Norvasc] 10 mg PO DAILY #31 tab 10/17/17 Unknown Rx diphenhydrAMINE [Benadryl CAP] 50 mg PO Q8HR PRN #30 capsule 10/17/17 Unknown Rx EPINEPHrine [Epipen 2-Albert] 0.3 mg SUB-Q ONCE PRN #1 auto.injct 11/21/17 Unknown Rx diphenhydrAMINE [Benadryl CAP] 50 mg PO Q8HR PRN #20 capsule 11/21/17 Unknown Rx predniSONE [Deltasone] 60 mg PO QDAY #12 tab 11/21/17 Unknown Rx Acetaminophen [Tylenol Arthritis] 650 mg PO Q6HR PRN #30 tablet.er 01/10/18 Unknown Rx Aspirin [Aspirin BABY CHEW TAB] 81 mg PO QDAY #30 tab.chew 01/10/18 Unknown Rx Ibuprofen [Motrin] 600 mg PO Q8H PRN #30 tablet 01/10/18 Unknown Rx Ondansetron [Zofran Odt] 4 mg PO Q8HR PRN #20 tab.rapdis 01/10/18 Unknown Rx Allergies Allergy/AdvReac Type Severity Reaction Status Date / Time almond Allergy Anaphylaxis Verified 11/21/17 14:59 shellfish derived AdvReac Anaphylaxis Verified 11/21/17 14:59 ED Review of Systems ROS: Stated complaint: CHEST PAIN Other details as noted in HPI Constitutional: malaise. denies: fever Eyes: denies: eye discharge ENT: denies: epistaxis Respiratory: denies: cough Cardiovascular: chest pain Gastrointestinal: abdominal pain Genitourinary: denies: dysuria Musculoskeletal: arthralgia, myalgia Skin: denies: lesions Neurological: numbness Psychiatric: anxiety, depression ED Past Medical Hx - Past Medical History Hx Hypertension: Yes Hx Congestive Heart Failure: No Hx Diabetes: No Hx Psychiatric Treatment: Yes (PTSD, Depression, panic disorder) Hx Asthma: No Additional medical history: fibriod. chronic brochitis. anemia - Surgical History Hx Cholecystectomy: Yes Additional Surgical History: Fibroids removed 2012 - Social History Smoking Status: Never Smoker Substance Use Type: None - Medications Home Medications: Home Medications Medication Instructions Recorded Confirmed Last Taken Type Hydrochlorothiazide [Hctz] 12.5 mg PO QDAY #30 capsule 10/21/15 Unknown Rx Prednisone [predniSONE 10 mg 10 mg PO .TAPER #1 tab.ds.pk 10/21/15 Unknown Rx (6-Day Pack, 21 Tabs)] amLODIPine [Norvasc] 10 mg PO DAILY #30 tab 10/21/15 Unknown Rx Hydrochlorothiazide [HCTZ] 25 mg PO QDAY #30 tablet 10/17/17 Unknown Rx Prednisone [predniSONE 10 mg 10 mg PO .TAPER #1 tab.ds.pk 10/17/17 Unknown Rx (6-Day Pack, 21 Tabs)] amLODIPine [Norvasc] 10 mg PO DAILY #31 tab 10/17/17 Unknown Rx diphenhydrAMINE [Benadryl CAP] 50 mg PO Q8HR PRN #30 capsule 10/17/17 Unknown Rx EPINEPHrine [Epipen 2-Albert] 0.3 mg SUB-Q ONCE PRN #1 auto.injct 11/21/17 Unknown Rx diphenhydrAMINE [Benadryl CAP] 50 mg PO Q8HR PRN #20 capsule 11/21/17 Unknown Rx predniSONE [Deltasone] 60 mg PO QDAY #12 tab 11/21/17 Unknown Rx Acetaminophen [Tylenol Arthritis] 650 mg PO Q6HR PRN #30 tablet.er 01/10/18 Unknown Rx Aspirin [Aspirin BABY CHEW TAB] 81 mg PO QDAY #30 tab.chew 01/10/18 Unknown Rx Ibuprofen [Motrin] 600 mg PO Q8H PRN #30 tablet 01/10/18 Unknown Rx Ondansetron [Zofran Odt] 4 mg PO Q8HR PRN #20 tab.rapdis 01/10/18 Unknown Rx ED Physical Exam - General Limitations: No Limitations General appearance: alert, obese - Head Head exam: Present: atraumatic, normocephalic - Eye Eye exam: Present: normal appearance, EOMI. Absent: nystagmus - ENT ENT exam: Present: normal exam, normal orophraynx, mucous membranes moist, normal external ear exam - Neck Neck exam: Present: normal inspection - Respiratory Respiratory exam: Present: normal lung sounds bilaterally, chest wall tenderness , other (escorted by a nurse SUSHIL HACKETT). Absent: respiratory distress, wheezes, rales, rhonchi, stridor - Cardiovascular Cardiovascular Exam: Present: regular rate, normal rhythm, normal heart sounds. Absent: bradycardia, tachycardia, irregular rhythm, systolic murmur, diastolic murmur, rubs, gallop - GI/Abdominal GI/Abdominal exam: Present: soft, tenderness, normal bowel sounds. Absent: distended, guarding, rebound, rigid, pulsatile mass, hernia - Extremities Exam Extremities exam: Present: normal inspection, full ROM, normal capillary refill , other (2+ pulses noted in the bilateral upper, lower extremities. Compartments soft. No long bony tenderness. The pelvis is stable.). Absent: tenderness, pedal edema, joint swelling, calf tenderness - Back Exam Back exam: Present: normal inspection, full ROM. Absent: tenderness, CVA tenderness (R), paraspinal tenderness, vertebral tenderness - Neurological Exam Neurological exam: Present: alert, oriented X3, CN II-XII intact, other ( Extraocular movements intact. Tongue midline. No facial droop. Facial sensation intact to light touch in the V1, V2, V3 distribution bilaterally. 5 and 5 strength in 4 extremities.. Sensation is intact to light touch in 4 extremities.). Absent: motor sensory deficit - Psychiatric Psychiatric exam: Present: anxious - Skin Skin exam: Present: warm, dry, intact, normal color. Absent: rash ED Course Vital Signs 01/09/18 01/09/18 01/09/18 09:30 11:00 13:41 Temperature 99.7 F H Pulse Rate 97 H 88 88 Respiratory 22 Rate Blood Pressure 197/121 Blood Pressure 186/98 176/97 [Left] O2 Sat by Pulse 97 Oximetry 01/09/18 01/09/18 01/09/18 18:06 18:15 18:16 Temperature 97.7 F Pulse Rate 88 80 Respiratory 15 17 Rate Blood Pressure 145/97 Blood Pressure 145/97 [Left] O2 Sat by Pulse 97 100 99 Oximetry 01/09/18 01/09/18 01/09/18 18:30 18:46 19:00 Temperature Pulse Rate 87 84 82 Respiratory 13 16 22 Rate Blood Pressure 170/107 170/107 182/105 Blood Pressure [Left] O2 Sat by Pulse 99 100 99 Oximetry 01/09/18 01/09/18 01/09/18 23:00 23:11 23:16 Temperature 98.1 F Pulse Rate 84 80 69 Respiratory 16 17 13 Rate Blood Pressure 149/92 149/92 Blood Pressure 149/92 [Left] O2 Sat by Pulse 97 96 98 Oximetry 01/09/18 01/09/18 01/09/18 23:22 23:30 23:46 Temperature Pulse Rate 85 78 77 Respiratory 19 18 19 Rate Blood Pressure 149/92 182/105 182/105 Blood Pressure [Left] O2 Sat by Pulse 96 94 95 Oximetry - Reevaluation(s) Reevaluation #1: 01/10/18 01:39 LIVE [facility] XIOMARA MARIE Female : 1975 MedRec# [id number] 01/09/18 10:46 - Radiology Dept. Note by SCOTT ALANIS [facility] Num: [id number] : 1975 Patient Age: 42 VASCULAR LAB.PRELIMINARY REPORT. LLE VENOUS DUPLEX DONE. NO EVIDENCE OF DVT/SVT IN VESSELS VISUALIZED. Initialized on 01/09/18 10:46 - END OF NOTE Reevaluation #2: 01/10/18 01:40 IMPRESSION: 1. Study degraded by artifact created by large body habitus and lack of significant opacification of the pulmonary arteries. 2. No definite evidence of an acute intrathoracic process. 3. No evidence of large central pulmonary artery emboli. However, significant pulmonary artery emboli could be missed due to lack of significant opacification of the pulmonary arteries. . Study is significantly degraded by artifact created by large body habitus. 2. Multiple stones in the kidneys bilaterally. There is no evidence of hydronephrosis nor hydroureter. 3. Calcifications in the expected locations of the ureters bilaterally. These may represent ureteral stones or phleboliths in the gonadal veins. Evaluation is significantly limited by artifact. The most suspect for a possible ureteral stone is on the right and measures approximately 3.6 millimeters in size. Comparison with previous CT abdomen and pelvis would be helpful. 4. Mildly prominent lymph nodes in the external iliac chains bilaterally. These are nonspecific in appearance but are most likely inflammatory in nature. 5. The uterus is diminutive in size or absent. Visualization is limited by artifact. 6. Degenerative facet change lower lumbar spine. 01/10/18 01:41 Reevaluation #3: 01/10/18 01:41 Differential diagnosis, including but not limited to, costochondritis, pneumonia , pulmonary embolus, pleuritis, DVT, urinary tract infection, AAA, dissection, acute coronary syndrome Assessment and plan: 42-year-old female who complains of left leg pain, pleuritic chest pain, and abdominal pain. Patient reports no DVT or pulmonary embolus risk factors, had a negative d-dimer, and had a negative left lower extremity ultrasound. However, given her clinical history, I consider the patient's risk for thromboembolic disease to be moderate, and felt that an empiric CT scan of the chest was warranted. Unfortunately, this test was nondiagnostic for subsegmental and segmental lesions, and the study was limited by the patient's body habitus. Therefore a nuclear medicine study was obtained. The results are pending at this time. The patient's CT scan of the abdomen and pelvis showed numerous incidental findings, but no emergent surgical disease or pathology. From a cardiac risk stratification standpoint, the patient has been in the ER for over 16 hours, has had multiple negative troponins, essentially unremarkable EKG 2. The patient is the low risk by Borjas's score, and at low risk for major adverse cardiac event. Through shared decision making, the patient has indicated that she would prefer to be discharged to follow up with cardiology for an outpatient cardiac risk stratification. She reports that she is reliable to follow up. Understands that she is at low risk for major adverse cardiac event. Reevaluation #4: 01/10/18 01:49 Care is transferred to the overnight physician, Dr. Yoder, to follow-up on the nuclear medicine study. If low probability, plan is to discharge patient to follow up with outpatient cardiology. If intermediate or high probability, with anticoagulate and admit the patient to the medical service for further workup and evaluation. ED Medical Decision Making - Lab Data Result diagrams: 01/09/18 10:13 01/09/18 10:13 Vital Signs 01/09/18 01/09/18 01/09/18 09:30 11:00 13:41 Temperature 99.7 F H Pulse Rate 97 H 88 88 Respiratory 22 Rate Blood Pressure 197/121 Blood Pressure 186/98 176/97 [Left] O2 Sat by Pulse 97 Oximetry 01/09/18 01/09/18 01/09/18 18:06 18:15 18:16 Temperature 97.7 F Pulse Rate 88 80 Respiratory 15 17 Rate Blood Pressure 145/97 Blood Pressure 145/97 [Left] O2 Sat by Pulse 97 100 99 Oximetry 01/09/18 01/09/18 01/09/18 18:30 18:46 19:00 Temperature Pulse Rate 87 84 82 Respiratory 13 16 22 Rate Blood Pressure 170/107 170/107 182/105 Blood Pressure [Left] O2 Sat by Pulse 99 100 99 Oximetry 01/09/18 01/09/18 01/09/18 23:00 23:11 23:16 Temperature 98.1 F Pulse Rate 84 80 69 Respiratory 16 17 13 Rate Blood Pressure 149/92 149/92 Blood Pressure 149/92 [Left] O2 Sat by Pulse 97 96 98 Oximetry 01/09/18 01/09/18 01/09/18 23:22 23:30 23:46 Temperature Pulse Rate 85 78 77 Respiratory 19 18 19 Rate Blood Pressure 149/92 182/105 182/105 Blood Pressure [Left] O2 Sat by Pulse 96 94 95 Oximetry Lab Results 01/09/18 01/09/18 01/09/18 Range/Units 10:06 10:06 10:13 WBC 8.7 (4.5-11.0) K/mm3 RBC 5.22 H (3.65-5.03) M/mm3 Hgb 12.4 (10.1-14.3) gm/dl Hct 39.4 (30.3-42.9) % MCV 75 L (79-97) fl MCH 24 L (28-32) pg MCHC 31 (30-34) % RDW 16.9 H (13.2-15.2) % Plt Count 327 (140-440) K/mm3 Lymph % (Auto) 28.8 (13.4-35.0) % [place] % (Auto) 8.6 H (0.0-7.3) % Eos % (Auto) 1.3 (0.0-4.3) % Baso % (Auto) 0.3 (0.0-1.8) % Lymph # 2.5 (1.2-5.4) K/mm3 [place] # 0.7 (0.0-0.8) K/mm3 Eos # 0.1 (0.0-0.4) K/mm3 Baso # 0.0 (0.0-0.1) K/mm3 Seg Neutrophils % 61.0 (40.0-70.0) % Seg Neutrophils # 5.3 (1.8-7.7) K/mm3 PT (12.2-14.9) Sec. INR (0.87-1.13) Sodium (137-145) mmol/L Potassium (3.6-5.0) mmol/L Chloride (98-107) mmol/L Carbon Dioxide (22-30) mmol/L Anion Gap mmol/L BUN (7-17) mg/dL Creatinine (0.7-1.2) mg/dL Estimated GFR ml/min BUN/Creatinine Ratio % Glucose (65-100) mg/dL Calcium (8.4-10.2) mg/dL Total Bilirubin (0.1-1.2) mg/dL AST (5-40) units/L ALT (7-56) units/L Alkaline Phosphatase (35-129) units/L Troponin T (0.00-0.029) ng/mL NT-Pro-B Natriuret Pep (0-450) pg/mL Total Protein (6.3-8.2) g/dL Albumin (3.9-5) g/dL Albumin/Globulin Ratio % Urine Color Yellow (Yellow) Urine Turbidity Hazy (Clear) Urine pH 8.0 H (5.0-7.0) Ur Specific [place] 1.010 (1.003-1.030) Urine Protein 100 mg/dl (Negative) mg/dL Urine Glucose (UA) Neg (Negative) mg/dL Urine Ketones Neg (Negative) mg/dL Urine Blood Sm (Negative) Urine Nitrite Neg (Negative) Urine Bilirubin Neg (Negative) Urine Urobilinogen < 2.0 (<2.0) mg/dL Ur Leukocyte Esterase Neg (Negative) Urine WBC (Auto) 1.0 (0.0-6.0) /HPF Urine RBC (Auto) 12.0 (0.0-6.0) /HPF U Epithel Cells (Auto) 3.0 (0-13.0) /HPF Urine HCG, Qual Negative (Negative) 01/09/18 01/09/18 01/09/18 Range/Units 10:13 10:13 10:13 WBC (4.5-11.0) K/mm3 RBC (3.65-5.03) M/mm3 Hgb (10.1-14.3) gm/dl Hct (30.3-42.9) % MCV (79-97) fl MCH (28-32) pg MCHC (30-34) % RDW (13.2-15.2) % Plt Count (140-440) K/mm3 Lymph % (Auto) (13.4-35.0) % [place] % (Auto) (0.0-7.3) % Eos % (Auto) (0.0-4.3) % Baso % (Auto) (0.0-1.8) % Lymph # (1.2-5.4) K/mm3 [place] # (0.0-0.8) K/mm3 Eos # (0.0-0.4) K/mm3 Baso # (0.0-0.1) K/mm3 Seg Neutrophils % (40.0-70.0) % Seg Neutrophils # (1.8-7.7) K/mm3 PT 13.1 (12.2-14.9) Sec. INR 0.95 (0.87-1.13) Sodium 139 (137-145) mmol/L Potassium 3.9 (3.6-5.0) mmol/L Chloride 98.3 (98-107) mmol/L Carbon Dioxide 28 (22-30) mmol/L Anion Gap 17 mmol/L BUN 10 (7-17) mg/dL Creatinine 0.9 (0.7-1.2) mg/dL Estimated GFR > 60 ml/min BUN/Creatinine Ratio 11 % Glucose 110 H (65-100) mg/dL Calcium 9.5 (8.4-10.2) mg/dL Total Bilirubin 0.50 (0.1-1.2) mg/dL AST 16 (5-40) units/L ALT 18 (7-56) units/L Alkaline Phosphatase 111 (35-129) units/L Troponin T < 0.010 (0.00-0.029) ng/mL NT-Pro-B Natriuret Pep (0-450) pg/mL Total Protein 7.6 (6.3-8.2) g/dL Albumin 4.1 (3.9-5) g/dL Albumin/Globulin Ratio 1.2 % Urine Color (Yellow) Urine Turbidity (Clear) Urine pH (5.0-7.0) Ur Specific [place] (1.003-1.030) Urine Protein (Negative) mg/dL Urine Glucose (UA) (Negative) mg/dL Urine Ketones (Negative) mg/dL Urine Blood (Negative) Urine Nitrite (Negative) Urine Bilirubin (Negative) Urine Urobilinogen (<2.0) mg/dL Ur Leukocyte Esterase (Negative) Urine WBC (Auto) (0.0-6.0) /HPF Urine RBC (Auto) (0.0-6.0) /HPF U Epithel Cells (Auto) (0-13.0) /HPF Urine HCG, Qual (Negative) 01/09/18 01/09/18 Range/Units 10:13 13:30 WBC (4.5-11.0) K/mm3 RBC (3.65-5.03) M/mm3 Hgb (10.1-14.3) gm/dl Hct (30.3-42.9) % MCV (79-97) fl MCH (28-32) pg MCHC (30-34) % RDW (13.2-15.2) % Plt Count (140-440) K/mm3 Lymph % (Auto) (13.4-35.0) % [place] % (Auto) (0.0-7.3) % Eos % (Auto) (0.0-4.3) % Baso % (Auto) (0.0-1.8) % Lymph # (1.2-5.4) K/mm3 [place] # (0.0-0.8) K/mm3 Eos # (0.0-0.4) K/mm3 Baso # (0.0-0.1) K/mm3 Seg Neutrophils % (40.0-70.0) % Seg Neutrophils # (1.8-7.7) K/mm3 PT (12.2-14.9) Sec. INR (0.87-1.13) Sodium (137-145) mmol/L Potassium (3.6-5.0) mmol/L Chloride (98-107) mmol/L Carbon Dioxide (22-30) mmol/L Anion Gap mmol/L BUN (7-17) mg/dL Creatinine (0.7-1.2) mg/dL Estimated GFR ml/min BUN/Creatinine Ratio % Glucose (65-100) mg/dL Calcium (8.4-10.2) mg/dL Total Bilirubin (0.1-1.2) mg/dL AST (5-40) units/L ALT (7-56) units/L Alkaline Phosphatase (35-129) units/L Troponin T < 0.010 (0.00-0.029) ng/mL NT-Pro-B Natriuret Pep 148.6 (0-450) pg/mL Total Protein (6.3-8.2) g/dL Albumin (3.9-5) g/dL Albumin/Globulin Ratio % Urine Color (Yellow) Urine Turbidity (Clear) Urine pH (5.0-7.0) Ur Specific [place] (1.003-1.030) Urine Protein (Negative) mg/dL Urine Glucose (UA) (Negative) mg/dL Urine Ketones (Negative) mg/dL Urine Blood (Negative) Urine Nitrite (Negative) Urine Bilirubin (Negative) Urine Urobilinogen (<2.0) mg/dL Ur Leukocyte Esterase (Negative) Urine WBC (Auto) (0.0-6.0) /HPF Urine RBC (Auto) (0.0-6.0) /HPF U Epithel Cells (Auto) (0-13.0) /HPF Urine HCG, Qual (Negative) - EKG Data -: EKG Interpreted by Tx EKG shows normal: sinus rhythm Rate: normal - EKG Data 01/10/18 01:43 EKG #1 demonstrates normal sinus, 87 bpm, high left ventricular voltage, poor R wave progression, QTC within normal limits, motion artifact, not a STEMI EKG #2 is unchanged from prior, motion artifact noted. - Radiology Data Radiology results: report reviewed, image reviewed Patient: XIOMARA MARIE MR#: [id number] : 1975 Acct:[id number] Age/Sex: 42 / F ADM Date: 01/09/18 Loc: ED Attending Dr: Ordering Physician: NIC CRENSHAW MD Date of Service: 01/09/18 Procedure(s): CT abdomen pelvis w con Accession Number(s): [id number] cc: NIC CRENSHAW MD FINAL REPORT EXAM: CT ABDOMEN PELVIS W CON HISTORY: abd pain radiating down leg TECHNIQUE: Following IV administration of 100 cc of Omnipaque 350 axial helical imaging was performed through the abdomen and pelvis with sagittal and coronal reformatted images obtained. Comparison: CT angiogram chest also performed today FINDINGS: Visualization detail in portions of the abdomen and pelvis is significantly limited by artifact created by large body habitus. Heart appears to be enlarged. There is the appearance of fatty infiltration of the liver. There is an approximately 3.8 centimeter area of decreased density with marginal enhancement in the right lobe of the liver which may represent an hemangioma. Visualization detail is significantly limited by artifact. The spleen, pancreas and adrenal glands are unremarkable in appearance. There are multiple stones in the renal pelvis bilaterally. There is no evidence of hydronephrosis and no definite evidence of hydroureter. The there are calcific densities in the expected location of the ureters bilaterally which may represent ureteral stones or phleboliths in the gonadal veins. Evaluation is significantly limited by artifact. The most suspect for a possible ureteral stone is on the right and measures approximately 3.6 millimeters in size. There are multiple calcifications in the patient's pelvis that likely represent phleboliths. The bowel is normal caliber. The appendix appears to be normal caliber and contains air. There is no evidence of pneumoperitoneum or free fluid. The abdominal aorta is normal caliber. There are mildly prominent lymph nodes in the external iliac chains bilaterally. The urinary bladder is mildly distended and unremarkable in appearance. The uterus is diminutive in size or absent. The bony structures are notable for degenerative facet change in the lower lumbar spine. IMPRESSION: 1. Study is significantly degraded by artifact created by large body habitus. 2. Multiple stones in the kidneys bilaterally. There is no evidence of hydronephrosis nor hydroureter. 3. Calcifications in the expected locations of the ureters bilaterally. These may represent ureteral stones or phleboliths in the gonadal veins. Evaluation is significantly limited by artifact. The most suspect for a possible ureteral stone is on the right and measures approximately 3.6 millimeters in size. Comparison with previous CT abdomen and pelvis would be helpful. 4. Mildly prominent lymph nodes in the external iliac chains bilaterally. These are nonspecific in appearance but are most likely inflammatory in nature. 5. The uterus is diminutive in size or absent. Visualization is limited by artifact. 6. Degenerative facet change lower lumbar spine. Transcribed By: ED Dictated By: ENRIQUETA NOBLE MD Electronically Authenticated By: ENRIQUETA NOBLE MD Signed Date/Time: 01/09/182042 \ [address] [address] Cat Scan Report Signed Patient: XIOMARA MARIE MR#: [id number] : 1975 Acct:[id number] Age/Sex: 42 / F ADM Date: 01/09/18 Loc: ED Attending Dr: Ordering Physician: NIC CRENSHAW MD Date of Service: 01/09/18 Procedure(s): CT angio chest Accession Number(s): [id number] cc: NIC CRENSHAW MD FINAL REPORT EXAM: CT ANGIO CHEST HISTORY: pleuritic cp TECHNIQUE: Following IV administration of 100 cc of Omnipaque 350 axial helical imaging was performed through the chest with sagittal and coronal reformatted images and maximum intensity projection images obtained. Comparison: CT abdomen and pelvis also performed today FINDINGS: This study is degraded by artifact created by large body habitus and lack of significant opacification of the pulmonary arteries. There is no evidence of infiltrate, pneumothorax or pleural fluid collection. The trachea and bronchi are patent. Heart appears to be enlarged. The thoracic aorta is normal caliber. There is no evidence of intrathoracic adenopathy. There is no evidence of large central pulmonary artery emboli. However, significant pulmonary artery emboli could be missed due to lack of significant opacification of the pulmonary arteries. The bony structures are unremarkable in appearance. IMPRESSION: 1. Study degraded by artifact created by large body habitus and lack of significant opacification of the pulmonary arteries. 2. No definite evidence of an acute intrathoracic process. 3. No evidence of large central pulmonary artery emboli. However, significant pulmonary artery emboli could be missed due to lack of significant opacification of the pulmonary arteries. Transcribed By: ED Dictated By: ENRIQUETA NOBLE MD Electronically Authenticated By: ENRIQUETA NOBLE MD Signed Date/Time: 01/09/18[address] [address] Cat Scan Report Signed Patient: XIOMARA MARIE MR#: [id number] : 1975 Acct:[id number] Age/Sex: 42 / F ADM Date: 01/09/18 Loc: ED Attending Dr: Ordering Physician: NIC CRENSHAW MD Date of Service: 01/09/18 Procedure(s): CT angio chest Accession Number(s): [id number] cc: NIC CRENSHAW MD FINAL REPORT EXAM: CT ANGIO CHEST HISTORY: pleuritic cp TECHNIQUE: Following IV administration of 100 cc of Omnipaque 350 axial helical imaging was performed through the chest with sagittal and coronal reformatted images and maximum intensity projection images obtained. Comparison: CT abdomen and pelvis also performed today FINDINGS: This study is degraded by artifact created by large body habitus and lack of significant opacification of the pulmonary arteries. There is no evidence of infiltrate, pneumothorax or pleural fluid collection. The trachea and bronchi are patent. Heart appears to be enlarged. The thoracic aorta is normal caliber. There is no evidence of intrathoracic adenopathy. There is no evidence of large central pulmonary artery emboli. However, significant pulmonary artery emboli could be missed due to lack of significant opacification of the pulmonary arteries. The bony structures are unremarkable in appearance. IMPRESSION: 1. Study degraded by artifact created by large body habitus and lack of significant opacification of the pulmonary arteries. 2. No definite evidence of an acute intrathoracic process. 3. No evidence of large central pulmonary artery emboli. However, significant pulmonary artery emboli could be missed due to lack of significant opacification of the pulmonary arteries. Transcribed By: ED Dictated By: ENRIQUETA NOBLE MD Electronically Authenticated By: ENRIQUETA NOBLE MD Signed Date/Time: 01/09/182022 [facility] [address] [place] [address] Cat Scan Report Signed Patient: XIOMARA MARIE MR#: [id number] : 1975 Acct:[id number] Age/Sex: 42 / F ADM Date: 01/09/18 Loc: ED Attending Dr: Ordering Physician: NIC CRENSHAW MD Date of Service: 01/09/18 Procedure(s): CT angio chest Accession Number(s): [id number] cc: NIC CRENSHAW MD FINAL REPORT EXAM: CT ANGIO CHEST HISTORY: pleuritic cp TECHNIQUE: Following IV administration of 100 cc of Omnipaque 350 axial helical imaging was performed through the chest with sagittal and coronal reformatted images and maximum intensity projection images obtained. Comparison: CT abdomen and pelvis also performed today FINDINGS: This study is degraded by artifact created by large body habitus and lack of significant opacification of the pulmonary arteries. There is no evidence of infiltrate, pneumothorax or pleural fluid collection. The trachea and bronchi are patent. Heart appears to be enlarged. The thoracic aorta is normal caliber. There is no evidence of intrathoracic adenopathy. There is no evidence of large central pulmonary artery emboli. However, significant pulmonary artery emboli could be missed due to lack of significant opacification of the pulmonary arteries. The bony structures are unremarkable in appearance. IMPRESSION: 1. Study degraded by artifact created by large body habitus and lack of significant opacification of the pulmonary arteries. 2. No definite evidence of an acute intrathoracic process. 3. No evidence of large central pulmonary artery emboli. However, significant pulmonary artery emboli could be missed due to lack of significant opacification of the pulmonary arteries. Transcribed By: ED Dictated By: ENRIQUETA NOBLE MD Electronically Authenticated By: ENRIQUETA NOBLE MD Signed Date/Time: 01/09/182022 Critical care attestation.: If time is entered above; I have spent that time in minutes in the direct care of this critically ill patient, excluding procedure time. ED Disposition Clinical Impression: Morbid obesity, Chest pain Disposition: DC- TO HOME OR SELFCARE Condition: Stable Instructions: Chest Pain (ED) Additional Instructions: Take the medications as needed/directed. Follow up with any of the listed cardiology groups within the next 3-5 days for further evaluation and management of her chest pain. CT scan suggested but did not definitively diagnose possible right-sided kidney stone. take The pain medication as needed , and follow up with a urologist for this within the next 4-6 weeks. Return to the ER right away with new pain, worsened pain, migration of pain, fevers, chills, lethargy, irritability, projectile vomiting, change in mental status, confusion, inability to tolerate liquid feeds. Prescriptions: Acetaminophen [Tylenol Arthritis] 650 mg PO Q6HR PRN #30 tablet.er PRN Reason: Pain Aspirin [Aspirin BABY CHEW TAB] 81 mg PO QDAY #30 tab.chew Ibuprofen [Motrin] 600 mg PO Q8H PRN #30 tablet PRN Reason: Pain Ondansetron [Zofran Odt] 4 mg PO Q8HR PRN #20 tab.rapdis PRN Reason: Nausea Referrals: PRIMARY CARE, [Primary Care Provider] - 3-5 Days [facility] [Provider Group] - 3-5 Days [facility] [Provider Group] - 3-5 Days [facility] [Provider Group] - 3-5 Days [facility] [Provider Group] - 3-5 Days <VAHE YODER - Last Filed: 01/10/18 03:00> ED Course - Reevaluation(s) Reevaluation #5: 01/10/18 03:00 VQ scan is normal. ED Medical Decision Making - Lab Data Result diagrams: 01/09/18 10:13 01/09/18 10:13 ED Disposition Is pt being admited?: No
[2018-01-09 19:02] LABS: HCG Qualitative,Urine Negative (Negative)
[2018-01-09] MEDS ORDERED: SUBLIMAZE IV ONE (19:11)
[2018-01-09] MEDS ORDERED: NACL 0.9% 500 ML 500 ML IV ONE (19:11)
[2018-01-09] MEDS ORDERED: NACL 0.9% 1000 ML 1,000 ML ONE (19:13)
--- NOTE | 2018-01-09 20:31 | Cat Scan Report ---
FINAL REPORT EXAM: CT ANGIO CHEST HISTORY: pleuritic cp TECHNIQUE: Following IV administration of 100 cc of Omnipaque 350 axial helical imaging was performed through the chest with sagittal and coronal reformatted images and maximum intensity projection images obtained. Comparison: CT abdomen and pelvis also performed today FINDINGS: This study is degraded by artifact created by large body habitus and lack of significant opacification of the pulmonary arteries. There is no evidence of infiltrate, pneumothorax or pleural fluid collection. The trachea and bronchi are patent. Heart appears to be enlarged. The thoracic aorta is normal caliber. There is no evidence of intrathoracic adenopathy. There is no evidence of large central pulmonary artery emboli. However, significant pulmonary artery emboli could be missed due to lack of significant opacification of the pulmonary arteries. The bony structures are unremarkable in appearance. IMPRESSION: 1. Study degraded by artifact created by large body habitus and lack of significant opacification of the pulmonary arteries. 2. No definite evidence of an acute intrathoracic process. 3. No evidence of large central pulmonary artery emboli. However, significant pulmonary artery emboli could be missed due to lack of significant opacification of the pulmonary arteries.
[2018-01-09] MEDS ORDERED: REGLAN IV ONE (20:45)
--- NOTE | 2018-01-09 20:51 | Cat Scan Report ---
FINAL REPORT EXAM: CT ABDOMEN PELVIS W CON HISTORY: abd pain radiating down leg TECHNIQUE: Following IV administration of 100 cc of Omnipaque 350 axial helical imaging was performed through the abdomen and pelvis with sagittal and coronal reformatted images obtained. Comparison: CT angiogram chest also performed today FINDINGS: Visualization detail in portions of the abdomen and pelvis is significantly limited by artifact created by large body habitus. Heart appears to be enlarged. There is the appearance of fatty infiltration of the liver. There is an approximately 3.8 centimeter area of decreased density with marginal enhancement in the right lobe of the liver which may represent an hemangioma. Visualization detail is significantly limited by artifact. The spleen, pancreas and adrenal glands are unremarkable in appearance. There are multiple stones in the renal pelvis bilaterally. There is no evidence of hydronephrosis and no definite evidence of hydroureter. The there are calcific densities in the expected location of the ureters bilaterally which may represent ureteral stones or phleboliths in the gonadal veins. Evaluation is significantly limited by artifact. The most suspect for a possible ureteral stone is on the right and measures approximately 3.6 millimeters in size. There are multiple calcifications in the patient's pelvis that likely represent phleboliths. The bowel is normal caliber. The appendix appears to be normal caliber and contains air. There is no evidence of pneumoperitoneum or free fluid. The abdominal aorta is normal caliber. There are mildly prominent lymph nodes in the external iliac chains bilaterally. The urinary bladder is mildly distended and unremarkable in appearance. The uterus is diminutive in size or absent. The bony structures are notable for degenerative facet change in the lower lumbar spine. IMPRESSION: 1. Study is significantly degraded by artifact created by large body habitus. 2. Multiple stones in the kidneys bilaterally. There is no evidence of hydronephrosis nor hydroureter. 3. Calcifications in the expected locations of the ureters bilaterally. These may represent ureteral stones or phleboliths in the gonadal veins. Evaluation is significantly limited by artifact. The most suspect for a possible ureteral stone is on the right and measures approximately 3.6 millimeters in size. Comparison with previous CT abdomen and pelvis would be helpful. 4. Mildly prominent lymph nodes in the external iliac chains bilaterally. These are nonspecific in appearance but are most likely inflammatory in nature. 5. The uterus is diminutive in size or absent. Visualization is limited by artifact. 6. Degenerative facet change lower lumbar spine.
[2018-01-10 00:36] VITALS: BP 182/105
--- NOTE | 2018-01-10 02:31 | Nuclear Medicine Report ---
FINAL REPORT PROCEDURE: NM LUNG SCAN PERF/VENT TECHNIQUE: 5.0 mCi Tc-99m MAA was injected IV for pulmonary perfusion imaging in multiple projections. 17.10 mCi xenon 133 was inhaled for pulmonary ventilation imaging in multiple projections. Injection site: RIGHT antecubital fossa. CPT 83187 REGULATORY GUIDELINES: The patient was released based upon guidelines established in [place] State Regulations for Protection Against Radiation, Chapter 9573-01-99-35, Release of Individuals Containing Radioactive Drugs or Implants. HISTORY: cp sob COMPARISON: No prior studies are available for comparison. FINDINGS: Perfusion: No defects . Ventilation: No defects . IMPRESSION: Normal Examination
== END 2018-01-10 04:06 | disposition home or self-care (01) ==
LOC: ED 09:13
DX: E66.01 Morbid (severe) obesity due to excess calories (principal); R07.89 Other chest pain; I10 Essential (primary) hypertension; Z90.49 Acquired absence of other specified parts of digestive tract; Z91.013 Allergy to seafood; Z91.018 Allergy to other foods
CPT/HCPCS: 36415; 71046; 71275; 74177; 78582; 80053; 81001; 81025; 83880; 84484; 85025; 85610; 93005; 93010; 93971; 96374; 99285; A9540; A9558; J2765; J3010; J7030; Q9967

== ENCOUNTER 2018-01-11 19:09 | Emergency (ER) | payer MEDICAID ==
[2018-01-11] MEDS ORDERED: SOLU-Medrol IV ONE (19:33)
[2018-01-11] MEDS ORDERED: PEPCID IV ONE (19:34)
[2018-01-11 20:56] VITALS: BP 135/93
[2018-01-11] MEDS ORDERED: LIDOCAINE VISCOUS 2% PO ONE (21:07)
[2018-01-11] MEDS ORDERED: ALUM-MAG HYDROX-SIMETH 200-200-20MG/5ML PO ONE (21:08)
--- NOTE | 2018-01-11 21:08 | Emergency Department Report ---
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 She was seen here several days ago for similar reaction, head CT angiography with IV contrast dye, and was concerned about being very sensitive to medication, and had requested Benadryl, which was not given, and she was concerned that when she developed swollen throat today that she was having a light anaphylactic reaction. She felt that she was having some difficulty breathing, some trouble handling her oral secretions, contacted EMS, was treated with intravenous Benadryl as well as Solu-Medrol, and transported here to the emergency department. She reports symptoms had substantially settled by the time she arrived here, she can speak normally, breathes normally, has no sensation of wheezing, but she has chronic abdominal discomfort, crampy like but also achy-like, but moderate intensity, 5- 6 out of 10, in the epigastric area primarily, but also generalized. She has not had any nausea or vomiting, no diarrhea, no fever or chills, no diaphoresis. She also has complaints of anterior chest pain, worse with movement. She reports any significant amount of weight as a result of depression after the of her son, has not been exercising as much, reports that she tends to get some discomfort from this, and although not exercising as much, is getting good stretching. Chart review shows that patient was stable during her previous emergency department evaluation, and had negative examination, including negative CK of chest. ED Past Medical Hx - Past Medical History Hx Hypertension: Yes Hx Congestive Heart Failure: No Hx Diabetes: No Hx Psychiatric Treatment: Yes (PTSD, Depression, panic disorder) Hx Asthma: No Additional medical history: fibriod. chronic brochitis. anemia - Surgical History Hx Cholecystectomy: Yes Additional Surgical History: Fibroids removed 2012 - Social History Smoking Status: Never Smoker Substance Use Type: None - Medications Home Medications: Home Medications Medication Instructions Recorded Confirmed Last Taken Type Hydrochlorothiazide [Hctz] 12.5 mg PO QDAY #30 capsule 10/21/15 Unknown Rx amLODIPine [Norvasc] 10 mg PO DAILY #30 tab 10/21/15 Unknown Rx Hydrochlorothiazide [HCTZ] 25 mg PO QDAY #30 tablet 10/17/17 Unknown Rx Prednisone [predniSONE 10 mg 10 mg PO .TAPER #1 tab.ds.pk 10/17/17 Unknown Rx (6-Day Pack, 21 Tabs)] amLODIPine [Norvasc] 10 mg PO DAILY #31 tab 10/17/17 Unknown Rx diphenhydrAMINE [Benadryl CAP] 50 mg PO Q8HR PRN #30 capsule 10/17/17 Unknown Rx EPINEPHrine [Epipen 2-Albert] 0.3 mg SUB-Q ONCE PRN #1 auto.injct 11/21/17 Unknown Rx diphenhydrAMINE [Benadryl CAP] 50 mg PO Q8HR PRN #20 capsule 11/21/17 Unknown Rx predniSONE [Deltasone] 60 mg PO QDAY #12 tab 11/21/17 Unknown Rx Acetaminophen [Tylenol Arthritis] 650 mg PO Q6HR PRN #30 tablet.er 01/10/18 Unknown Rx Aspirin [Aspirin BABY CHEW TAB] 81 mg PO QDAY #30 tab.chew 01/10/18 Unknown Rx Ibuprofen [Motrin] 600 mg PO Q8H PRN #30 tablet 01/10/18 Unknown Rx Ondansetron [Zofran Odt] 4 mg PO Q8HR PRN #20 tab.rapdis 01/10/18 Unknown Rx Lidocaine Topical 2% 30Ml 5 ml PO Q4-6H PRN #5 tube 01/11/18 Unknown Rx [Xylocaine Topical 2% 30Ml] Prednisone [predniSONE 10 mg 10 mg PO .TAPER #1 tab.ds.pk 01/11/18 Unknown Rx (6-Day Pack, 21 Tabs)] diphenhydrAMINE [Benadryl CAP] 25 mg PO Q6HR #15 capsule 01/11/18 Unknown Rx ED Review of Systems ROS: Stated complaint: ALLERGIC REACTION Other details as noted in HPI Constitutional: denies: chills, fever Eyes: denies: vision change ENT: throat pain, other (throat swelling,) Respiratory: other (difficulty breathing, no wheezes). denies: cough Cardiovascular: chest pain (central anterior chest, has been recurrent, worse today) Endocrine: no symptoms reported Gastrointestinal: abdominal pain (primarily acid gastric, but also generalized) , nausea. denies: vomiting, diarrhea, constipation Genitourinary: denies: urgency, dysuria, frequency Musculoskeletal: denies: back pain Skin: denies: rash, lesions Neurological: denies: headache, weakness, numbness, paresthesias Psychiatric: depression Hematological/Lymphatic: denies: easy bleeding, easy bruising Physical Exam - Physical Exam Vital Signs: Vital Signs 01/11/18 01/11/18 01/11/18 19:23 19:31 20:30 Pulse Rate 85 85 Respiratory 15 12 Rate Blood Pressure 135/93 Blood Pressure 159/67 [Left] O2 Sat by Pulse 95 89 Oximetry General: Morbidly obese adult female, speaks easily, no acute distress, conversing with friend at time of examination. HEENT: Pupils equal round and reactive, face is nontender, no facial droop, no conjunctival injection, oropharynx is normal, no evidence of airway swelling, no redness in the tonsillar pillars. Neck: Nontender, no masses to palpation, thyroid palpation is normal, normal range of motion, nontender, no meningismus Chest: Reproducible discomfort to palpation costochondral area as well as diffusely sternal area bilaterally, little worse on the left side. Respiratory: Lungs are clear to auscultation all lung thao, no wheezes, rales , or rhonchi. Heart: Regular rate and rhythm, normal heart sounds, no murmurs Abdomen: Morbidly obese, soft, mild to moderate tenderness to palpation all quadrants, but no guarding, no rebound, bowel sounds are normal. No flank tenderness. Back: No costovertebral angle tenderness, no spinal bony tenderness, mild lower lumbosacral discomfort to generalized palpation. Extremities: obese, no joint effusions or tenderness, full range of motion all joints, no calf tenderness, no pedal edema. ED Course Vital Signs 01/11/18 01/11/18 01/11/18 19:23 19:31 20:30 Pulse Rate 85 85 Respiratory 15 12 Rate Blood Pressure 135/93 Blood Pressure 159/67 [Left] O2 Sat by Pulse 95 89 Oximetry - Reevaluation(s) Reevaluation #1: 01/11/18 21:57 Feels much better after having GI cocktail with viscous lidocaine, reports significant relief of discomfort, request some to go home, we'll give a single prescription of 2% viscous lidocaine to be used every 4 hours as needed. ED Medical Decision Making - Medical Decision Making This 42-year-old woman has a vague history of allergy, but had negative workup several days ago, and returns with symptoms worrisome for allergy, but all symptoms appear to have cleared by the time she is right emergency department, with slightly medical treatment and intravenous Benadryl, and although she appears to be asymptomatic, I cannot entirely rule out a recurrence of allergic reaction. She is clearly stable, does not need additional medication here, but we will continue her on steroids for the next several days, and recommend that she continue antacids for stomach upset, continue Zofran which she currently has a prescription for, and also to continue antihistamines, to include Benadryl as well as Pepcid. Recheck with physician in the coming week recommended also. I will give her a short course of viscous lidocaine for symptomatic relief for mild gastritis or dyspepsia. Critical Care Time: No Critical care attestation.: If time is entered above; I have spent that time in minutes in the direct care of this critically ill patient, excluding procedure time. ED Disposition Clinical Impression: Dyspepsia Acute allergic reaction Qualifiers: Encounter type: sequela Qualified Code(s): T78.40XS - Allergy, unspecified, sequela Disposition: DC-01 TO HOME OR SELFCARE Is pt being admited?: No Does the pt Need Aspirin: No Condition: Good Instructions: Anaphylaxis (ED), Chronic Indigestion (ED) Prescriptions: diphenhydrAMINE [Benadryl CAP] 25 mg PO Q6HR #15 capsule Lidocaine Topical 2% 30Ml [Xylocaine Topical 2% 30Ml] 5 ml PO Q4-6H PRN #5 tube PRN Reason: Dyspepsia Prednisone [predniSONE 10 mg (6-Day Pack, 21 Tabs)] 10 mg PO .TAPER #1 tab.ds.pk Referrals: PRIMARY CARE, [Primary Care Provider] - 3-5 Days Time of Disposition: 21:33
== END 2018-01-11 22:20 | disposition home or self-care (01) ==
LOC: ED 19:09
DX: T78.40XS Allergy, unspecified, sequela (principal); R10.13 Epigastric pain; D64.9 Anemia, unspecified; I10 Essential (primary) hypertension; F32.9 Major depressive disorder, single episode, unspecified; F43.10 Post-traumatic stress disorder, unspecified; Z90.49 Acquired absence of other specified parts of digestive tract; Z79.82 Long term (current) use of aspirin
CPT/HCPCS: 96374; J2930

== ENCOUNTER 2018-01-26 13:06 | Emergency (ER) | payer MEDICAID ==
[2018-01-26 13:24] VITALS: BP 191/109
[2018-01-26] MEDS ORDERED: ASPIRIN PO ONE (13:25)
[2018-01-26] MEDS ORDERED: ASPIRIN ONE (13:29)
[2018-01-26 13:44] LABS: Basophils % (Auto) 0.5 % (0.0-1.8); Eosinophils # (Auto) 0.2 K/mm3 (0.0-0.4); Eosinophils % (Auto) 2.7 % (0.0-4.3); Hematocrit 38.6 % (30.3-42.9); Hemoglobin 12.2 gm/dl (10.1-14.3); Lymphocytes # (Auto) 2.7 K/mm3 (1.2-5.4); Mean Corpuscular HGB Conc 32 % (30-34); Mean Corpuscular Volume 76 fl (79-97); Monocytes # (Auto) 0.6 K/mm3 (0.0-0.8); Monocytes % (Auto) 7.8 % (0.0-7.3); Platelet Count 312 K/mm3 (140-440); Red Cell Distribution Width 17.2 % (13.2-15.2)
[2018-01-26 13:50] LABS: Mean Corpuscular Hemoglobin 24 pg (28-32)
[2018-01-26 14:04] LABS: BUN/Creatinine Ratio 12; Blood Urea Nitrogen 11 mg/dL (7-17); Hemolysis Index 11
== END 2018-01-26 18:00 | disposition left against medical advice (07) ==
LOC: ED 13:06
DX: R07.9 Chest pain, unspecified (principal); R11.0 Nausea; Z91.010 Allergy to peanuts; Z91.013 Allergy to seafood; Z91.018 Allergy to other foods; Z79.82 Long term (current) use of aspirin; Z53.21 Procedure and treatment not carried out due to patient leaving prior to being seen by health care provider
CPT/HCPCS: 36415; 80048; 84484; 85025; 93005; 93010

== ENCOUNTER 2018-01-27 22:39 | Emergency (ER) | payer MEDICAID ==
[2018-01-27] MEDS ORDERED: ASPIRIN PO ONE (23:30)
[2018-01-27] MEDS ORDERED: ZOFRAN IM ONE (23:40)
[2018-01-28] LABS: Basophils % (Auto) 0.6 % (0.0-1.8); Eosinophils # (Auto) 0.2 K/mm3 (0.0-0.4); Eosinophils % (Auto) 2.9 % (0.0-4.3); Hematocrit 38.3 % (30.3-42.9); Hemoglobin 12.5 gm/dl (10.1-14.3); Lymphocytes # (Auto) 2.7 K/mm3 (1.2-5.4); Lymphocytes % (Auto) 39.2 % (13.4-35.0); Mean Corpuscular HGB Conc 33 % (30-34); Mean Corpuscular Volume 74 fl (79-97); Monocytes # (Auto) 0.6 K/mm3 (0.0-0.8); Monocytes % (Auto) 8.3 % (0.0-7.3); Platelet Count 327 K/mm3 (140-440); Red Blood Count 5.18 M/mm3 (3.65-5.03); Red Cell Distribution Width 16.9 % (13.2-15.2)
[2018-01-28 00:11] LABS: Mean Corpuscular Hemoglobin 24 pg (28-32)
[2018-01-28 00:17] LABS: BUN/Creatinine Ratio 10; Blood Urea Nitrogen 8 mg/dL (7-17); Calcium 9.5 mg/dL (8.4-10.2); Hemolysis Index 6
[2018-01-28] MEDS ORDERED: ZOFRAN ODT PO ONE (10:26)
[2018-01-28] MEDS ORDERED: LIDOCAINE VISCOUS 2% PO ONE (10:26)
[2018-01-28] MEDS ORDERED: CARAFATE PO ONE (10:26)
--- NOTE | 2018-01-28 10:31 | Emergency Department Report ---
ED General Adult HPI - General Chief complaint: Chest Pain Stated complaint: CONT.CHEST PAIN Time Seen by Provider: 01/28/18 09:16 Source: patient Mode of arrival: Ambulatory Limitations: No Limitations - History of Present Illness Initial comments: Patient presents to the emergency department with a chief complaint of chest pain. Patient states that her chest pain has been present for 3 weeks. Patient describes the pain has been the left side of her chest and radiating throughout her chest and into both of forearms. -: Gradual, week(s) (3) Location: chest Severity scale (0 -10): 5 Quality: dull Consistency: constant Improves with: none Worsens with: none Associated Symptoms: denies other symptoms Treatments Prior to Arrival: none - Related Data Previous Rx's Medication Instructions Recorded Last Taken Type amLODIPine [Norvasc] 10 mg PO DAILY #30 tab 10/21/15 Unknown Rx hydroCHLOROthiazide [Hctz] 12.5 mg PO QDAY #30 capsule 10/21/15 Unknown Rx Prednisone [predniSONE 10 mg 10 mg PO .TAPER #1 tab.ds.pk 10/17/17 Unknown Rx (6-Day Pack, 21 Tabs)] amLODIPine [Norvasc] 10 mg PO DAILY #31 tab 10/17/17 Unknown Rx diphenhydrAMINE [Benadryl CAP] 50 mg PO Q8HR PRN #30 capsule 10/17/17 Unknown Rx hydroCHLOROthiazide [HCTZ] 25 mg PO QDAY #30 tablet 10/17/17 Unknown Rx EPINEPHrine [Epipen 2-Albert] 0.3 mg SUB-Q ONCE PRN #1 auto.injct 11/21/17 Unknown Rx diphenhydrAMINE [Benadryl CAP] 50 mg PO Q8HR PRN #20 capsule 11/21/17 Unknown Rx predniSONE [Deltasone] 60 mg PO QDAY #12 tab 11/21/17 Unknown Rx Acetaminophen [Tylenol Arthritis] 650 mg PO Q6HR PRN #30 tablet.er 01/10/18 Unknown Rx Aspirin [Aspirin BABY CHEW TAB] 81 mg PO QDAY #30 tab.chew 01/10/18 Unknown Rx Ibuprofen [Motrin] 600 mg PO Q8H PRN #30 tablet 01/10/18 Unknown Rx Ondansetron [Zofran Odt] 4 mg PO Q8HR PRN #20 tab.rapdis 01/10/18 Unknown Rx Lidocaine Topical 2% 30Ml 5 ml PO Q4-6H PRN #5 tube 01/11/18 Unknown Rx [Xylocaine Topical 2% 30Ml] Prednisone [predniSONE 10 mg 10 mg PO .TAPER #1 tab.ds.pk 01/11/18 Unknown Rx (6-Day Pack, 21 Tabs)] diphenhydrAMINE [Benadryl CAP] 25 mg PO Q6HR #15 capsule 01/11/18 Unknown Rx Sucralfate [Carafate] 1 gm PO ACHS #240 udc 01/28/18 Unknown Rx Allergies Allergy/AdvReac Type Severity Reaction Status Date / Time almond Allergy Anaphylaxis Verified 01/26/18 13:52 latex Allergy Unknown Verified 01/26/18 13:52 peanut Allergy Unknown Verified 01/26/18 13:52 shellfish derived AdvReac Anaphylaxis Verified 01/26/18 13:52 ED Review of Systems ROS: Stated complaint: CONT.CHEST PAIN Other details as noted in HPI Comment: All other systems reviewed and negative Constitutional: denies: chills, fever Eyes: denies: eye pain, eye discharge, vision change ENT: denies: ear pain, throat pain Respiratory: denies: cough, shortness of breath, wheezing Cardiovascular: chest pain. denies: palpitations Endocrine: no symptoms reported Gastrointestinal: denies: abdominal pain, nausea, diarrhea Genitourinary: denies: urgency, dysuria, discharge Musculoskeletal: denies: back pain, joint swelling, arthralgia Skin: denies: rash, lesions Neurological: denies: headache, weakness, paresthesias Psychiatric: denies: anxiety, depression Hematological/Lymphatic: denies: easy bleeding, easy bruising ED Past Medical Hx - Past Medical History Hx Hypertension: Yes Hx Congestive Heart Failure: No Hx Diabetes: No Hx Renal Disease: Yes (kidney stones) Hx Psychiatric Treatment: Yes (PTSD, Depression, panic disorder) Hx Asthma: No Additional medical history: fibriod///OBESITY. chronic brochitis. anemia, enlarged heart - Surgical History Hx Cholecystectomy: Yes Additional Surgical History: Fibroids removed 2012,partial hysterecomy - Social History Smoking Status: Never Smoker Substance Use Type: None - Medications Home Medications: Home Medications Medication Instructions Recorded Confirmed Last Taken Type amLODIPine [Norvasc] 10 mg PO DAILY #30 tab 10/21/15 Unknown Rx hydroCHLOROthiazide [Hctz] 12.5 mg PO QDAY #30 capsule 10/21/15 Unknown Rx Prednisone [predniSONE 10 mg 10 mg PO .TAPER #1 tab.ds.pk 10/17/17 Unknown Rx (6-Day Pack, 21 Tabs)] amLODIPine [Norvasc] 10 mg PO DAILY #31 tab 10/17/17 Unknown Rx diphenhydrAMINE [Benadryl CAP] 50 mg PO Q8HR PRN #30 capsule 10/17/17 Unknown Rx hydroCHLOROthiazide [HCTZ] 25 mg PO QDAY #30 tablet 10/17/17 Unknown Rx EPINEPHrine [Epipen 2-Albert] 0.3 mg SUB-Q ONCE PRN #1 auto.injct 11/21/17 Unknown Rx diphenhydrAMINE [Benadryl CAP] 50 mg PO Q8HR PRN #20 capsule 11/21/17 Unknown Rx predniSONE [Deltasone] 60 mg PO QDAY #12 tab 11/21/17 Unknown Rx Acetaminophen [Tylenol Arthritis] 650 mg PO Q6HR PRN #30 tablet.er 01/10/18 Unknown Rx Aspirin [Aspirin BABY CHEW TAB] 81 mg PO QDAY #30 tab.chew 01/10/18 Unknown Rx Ibuprofen [Motrin] 600 mg PO Q8H PRN #30 tablet 01/10/18 Unknown Rx Ondansetron [Zofran Odt] 4 mg PO Q8HR PRN #20 tab.rapdis 01/10/18 Unknown Rx Lidocaine Topical 2% 30Ml 5 ml PO Q4-6H PRN #5 tube 01/11/18 Unknown Rx [Xylocaine Topical 2% 30Ml] Prednisone [predniSONE 10 mg 10 mg PO .TAPER #1 tab.ds.pk 01/11/18 Unknown Rx (6-Day Pack, 21 Tabs)] diphenhydrAMINE [Benadryl CAP] 25 mg PO Q6HR #15 capsule 01/11/18 Unknown Rx Sucralfate [Carafate] 1 gm PO ACHS #240 udc 01/28/18 Unknown Rx ED Physical Exam - General Limitations: No Limitations, Other (tearful) General appearance: alert, in no apparent distress - Head Head exam: Present: atraumatic, normocephalic - Eye Eye exam: Present: normal appearance, PERRL, EOMI - ENT ENT exam: Present: mucous membranes moist - Neck Neck exam: Present: normal inspection - Respiratory Respiratory exam: Present: normal lung sounds bilaterally. Absent: respiratory distress, wheezes, rales, rhonchi - Cardiovascular Cardiovascular Exam: Present: regular rate, normal rhythm. Absent: systolic murmur, diastolic murmur, rubs, gallop - GI/Abdominal GI/Abdominal exam: Present: soft, normal bowel sounds - Extremities Exam Extremities exam: Present: normal inspection - Back Exam Back exam: Present: normal inspection - Neurological Exam Neurological exam: Present: alert, oriented X3, CN II-XII intact. Absent: motor sensory deficit - Psychiatric Psychiatric exam: Present: normal affect, normal mood - Skin Skin exam: Present: warm, dry, intact, normal color. Absent: rash ED Course Vital Signs 01/27/18 01/28/18 23:25 07:43 Temperature 98.3 F 98.7 F Pulse Rate 93 H 91 H Respiratory 18 16 Rate Blood Pressure 158/72 Blood Pressure 163/108 [Right] O2 Sat by Pulse 100 99 Oximetry ED Medical Decision Making - Lab Data Result diagrams: 01/27/18 23:44 01/27/18 23:44 - EKG Data When compared to previous EKG there are: no significant change Interpretation: no acute changes, other (EKG shows a normal sinus rhythm with normal intervals with a rate of [address] elevation or EKG) - Medical Decision Making Discussed results with patient. As I was discussing the patient's results she began to break down and cry and then we discuss the passing of her child on as well as passing of her mother 5 years prior to that and how she has not been able to get over to dose of both of her love ones. Patient currently sees a therapist twice a week and has a support group but states that the pain is just really difficult to get over. We discussed this for approximately 25 minutes and patient states she does not want to hurt herself or others Patient states she is followed with Dr. Quick who is her primary care physician for any symptoms and he has set her up with a cardiology appointment and a edge burnisher. Critical care attestation.: If time is entered above; I have spent that time in minutes in the direct care of this critically ill patient, excluding procedure time. ED Disposition Clinical Impression: Nonspecific chest pain, Depressed mood Disposition: DC-01 TO HOME OR SELFCARE Is pt being admited?: No Does the pt Need Aspirin: No Condition: Stable Instructions: Chest Pain (ED) Additional Instructions: Return if worse Prescriptions: Sucralfate [Carafate] 1 gm PO ACHS #240 [facility] [place] Referrals: PRIMARY CARE, [Primary Care Provider] - 3-5 Days KIMBERLY QUICK MD [Staff Physician] - 3-5 Days Time of Disposition: 11:02
[2018-01-28 11:21] VITALS: BP 154/78
== END 2018-01-28 11:17 | disposition home or self-care (01) ==
LOC: ED 22:39
DX: R07.89 Other chest pain (principal); F32.9 Major depressive disorder, single episode, unspecified; I10 Essential (primary) hypertension; G89.29 Other chronic pain; F43.10 Post-traumatic stress disorder, unspecified; Z86.2 Personal history of diseases of the blood and blood-forming organs and certain disorders involving the immune mechanism; Z90.49 Acquired absence of other specified parts of digestive tract; Z90.710 Acquired absence of both cervix and uterus; Z79.899 Other long term (current) drug therapy
CPT/HCPCS: 36415; 80048; 84484; 85025; 93005; 93010; 96372; 99284; J2405; Q0162